=== PATIENT | male | born 1965 | race Caucasian/White ===

== ENCOUNTER 2017-06-16 17:36 | Emergency (ER) | payer OTHER ==
[2017-06-16 17:44] VITALS: BP 152/82; PULSE 96; TEMP 98.1; BMI 34.0
--- NOTE | 2017-06-16 17:50 | PDOC ---
History of Present Illness <Phil Lara - Last Filed: 06/16/17 17:49> - General History Source: Patient Exam Limitations: No Limitations - History of Present Illness Initial Comments: 06/16/17 18:07 The patient is a 52 year old male with a significant PMH of COPD, DM, HTN, HLD, s/p cardiac stents who presents to the emergency department s/p fall at 7AM this morning. The patient states he slipped and fell and broke his fall with his arms. The patient is complaining of right shoulder pain. The patient states his pain worsened at 2PM prompting his visit to the ER. The patient did not take any pain meds prior to his arrival. The patient denies chest pain, shortness of breath, headache and dizziness. Denies fever, chills, nausea, vomit, diarrhea and constipation. Allergies: NKA Past surgical history: cardiac stents Social history: No reported alcoholl or drug use. <Abida Johnson - Last Filed: 06/16/17 18:13> - General Chief Complaint: Injury Stated Complaint: SHOULDER INJURY Past History - Past Medical History COPD: Yes Dementia: Yes (TYPE II) Diabetes: Yes HTN: Yes Hypercholesterolemia: Yes - Surgical History Cardiac Surgery: Yes (stent in 2013) - Immunization History Immunization Up to Date: Yes - Suicide/Smoking/Psychosocial Hx Smoking Status: Yes Smoking History: Current every day smoker Have you smoked in the past 12 months: Yes Number of Cigarettes Smoked Daily: 20 Cigars Per Day: 0 Information on smoking cessation initiated: No 'Breaking Loose' booklet given: 06/20/16 Hx Alcohol Use: No Drug/Substance Use Hx: No Substance Use Type: None Hx Substance Use Treatment: No <Phil Lara - Last Filed: 06/16/17 17:49> <Abida Johnson - Last Filed: 06/16/17 18:13> - Past Medical History Allergies/Adverse Reactions: Allergies Allergy/AdvReac Type Severity Reaction Status Date / Time No Known Allergies Allergy Verified 06/16/17 17:40 Home Medications: Ambulatory Orders Metformin HCl 500 mg PO BID #60 tablet 10/30/11 Albuterol Sulfate Inhaler - [Ventolin Hfa *Inhaler*] 2 inh PO Q4H PRN 06/19/12 Clopidogrel Bisulfate [Plavix -] 75 mg PO DAILY 01/02/14 Enalapril Maleate [Vasotec -] 0 mg PO DAILY 01/02/14 Ibuprofen [Motrin -] 600 mg PO TID #21 tablet 01/02/14 Metoprolol Tartrate [Lopressor -] 0 mg PO DAILY 01/02/14 Simvastatin [Zocor -] 0 mg PO HS 01/02/14 Unobtainable [Unobtainable] 06/20/16 Review of Systems - Review of Systems Able to Perform ROS?: Yes Comments:: 06/16/17 18:08 GENERAL/CONSTITUTIONAL: No fever or chills. No weakness. HEAD, EYES, EARS, NOSE AND THROAT: No change in vision. No ear pain or discharge. No sore throat. CARDIOVASCULAR: No chest pain or shortness of breath. RESPIRATORY: No cough, wheezing, or hemoptysis. GASTROINTESTINAL: No nausea, vomiting, diarrhea or constipation. GENITOURINARY: No dysuria, frequency, or change in urination. MUSCULOSKELETAL: (+) Right shoulder pain. No neck or back pain. SKIN: No rash NEUROLOGIC: No headache, vertigo, loss of consciousness, or change in strength/ sensation. ENDOCRINE: No increased thirst. No abnormal weight change. HEMATOLOGIC/LYMPHATIC: No anemia, easy bleeding, or history of blood clots. ALLERGIC/IMMUNOLOGIC: No hives or skin allergy. <Abida Johnson - Last Filed: 06/16/17 18:13> *Physical Exam - Vital Signs Last Vital Signs Temp Pulse Resp BP Pulse Ox 98.1 F 96 H 18 152/82 98 06/16/17 17:42 06/16/17 17:42 06/16/17 17:42 06/16/17 17:42 06/16/17 17:42 <Phil Lara - Last Filed: 06/16/17 17:49> - Vital Signs Last Vital Signs Temp Pulse Resp BP Pulse Ox 98.1 F 96 H 18 152/82 98 06/16/17 17:42 06/16/17 17:42 06/16/17 17:42 06/16/17 17:42 06/16/17 17:42 - Physical Exam Comments: 06/16/17 18:09 The patient won't corporate with physical exam. GENERAL: Awake, alert, and fully oriented, in no acute distress HEAD: No signs of trauma EYES: PERRLA, EOMI, sclera anicteric, conjunctiva clear ENT: Auricles normal inspection, hearing grossly normal, nares patent, oropharynx clear without exudates. Moist mucosa NECK: Normal ROM, supple, no lymphadenopathy, JVD, or masses LUNGS: Breath sounds equal, clear to auscultation bilaterally. No wheezes, and no crackles HEART: Regular rate and rhythm, normal S1 and S2, no murmurs, rubs or gallops ABDOMEN: Soft, nontender, normoactive bowel sounds. No guarding, no rebound. No masses EXTREMITIES: (+) Good color to right shoulder. Distal pulses are 2+ and symmetric. Normal range of motion, no edema. No clubbing or cyanosis. No cords or erythema. NEUROLOGICAL: No sensory loss. Cranial nerves II through XII grossly intact. Normal speech, normal gait SKIN: Warm, Dry, normal turgor, no rashes or lesions noted. <Abida Johnson - Last Filed: 06/16/17 18:13> *DC/Admit/Observation/Transfer - Attestations Physician Attestion: 06/16/17 17:50 I, Dr. Phil Lara, attest that this document has been prepared under my direction and personally reviewed by me in its entirety. I further attest, that it accurately reflects all work, treatment, procedures and medical decision -making performed by me. <Phil Lara - Last Filed: 06/16/17 17:49> - Attestations Scribe Attestion: 06/16/17 18:13 Documentation prepared by Abida Johnson, acting as medical microbiologist for Emergency Dept,Physician, . <Abida Johnson - Last Filed: 06/16/17 18:13>
[2017-06-16] MEDS ORDERED: KETOROLAC TROMETHAMINE 60 MG/2 ML VIAL IM ONE (17:55)
[2017-06-16] MEDS ORDERED: KETOROLAC TROMETHAMINE 60 MG/2 ML VIAL ONE (18:19)
--- NOTE | 2017-06-16 20:24 | PDOC ---
*Physical Exam - Vital Signs Last Vital Signs Temp Pulse Resp BP Pulse Ox 98.1 F 96 H 18 152/82 98 06/16/17 17:42 06/16/17 17:42 06/16/17 17:42 06/16/17 17:42 06/16/17 17:42 ED Treatment Course - Medications Given in the ED: ED Medications Discontinued Medications Generic Name Dose Route Start Last Admin Trade Name Freq PRN Reason Stop Dose Admin Ketorolac Tromethamine 60 mg 06/16/17 17:55 06/16/17 18:27 Toradol Injection - IM 06/16/17 17:56 60 mg ONCE ONE Administration *DC/Admit/Observation/Transfer Diagnosis at time of Disposition: Shoulder contusion Qualifiers: Encounter type: initial encounter Laterality: right Qualified Code(s): S40.011A - Contusion of right shoulder, initial encounter Sprain of shoulder, right Qualifiers: Encounter type: initial encounter Shoulder sprain type: other part of shoulder region Qualified Code(s): S43.491A - Other sprain of right shoulder joint, initial encounter - Discharge Dispostion Disposition: HOME Condition at time of disposition: Stable Admit: No - Referrals Referrals: Heidy Chamberlain MD [Primary Care Provider] - Eliecer Short MD [Staff Physician] - - Patient Instructions Printed Discharge Instructions: DI for Shoulder Sprain Additional Instructions: Rest, ice and elevate arm when you can. Apply ice ot the injured area. TAke medication as directed. REturn if any problems - Post Discharge Activity
== END 2017-06-16 21:02 | disposition home or self-care (01) ==
LOC: JER 17:36
PROC: 3E0233Z Introduction of Anti-inflammatory into Muscle, Percutaneous Approach (ICD-10-PCS; principal; 2017-06-16)
DX: S43.491A Other sprain of right shoulder joint, initial encounter (principal); S40.011A Contusion of right shoulder, initial encounter; W18.39XA Other fall on same level, initial encounter; Y93.89 Activity, other specified; Y92.9 Unspecified place or not applicable
CPT/HCPCS: 73030-TC-RT; 99282-25

== ENCOUNTER 2017-08-24 15:47 | Emergency (ER) | payer OTHER ==
--- NOTE | 2017-08-24 16:01 | PDOC ---
Rapid Medical Evaluation Chief Complaint: Respiratory Medical Evaluation: Allergies Allergy/AdvReac Type Severity Reaction Status Date / Time No Known Allergies Allergy Verified 06/16/17 17:40 08/24/17 16:00 I have performed a brief in-person evaluation of this patient. The patient presents with a chief complaint of: Body aches w/ fever, cough and sob. Smoker w/ h/o CAD w/ stents, NH Pertinent physical exam findings:BP 161/94 w/ temp of 99 and clear chest/lungs I have ordered the following:ekg/cxr/labs The patient will proceed to the ED for further evaluation.
[2017-08-24 16:03] VITALS: BMI 34.7
[2017-08-24 16:29] LABS: BASO % 0.3 % (0-2.0); EOS % 0.4 % (0-4.5); HEMATOCRIT 48.8 % (35.4-49); HEMOGLOBIN 16.1 GM/dL (11.7-16.9); LYMPH % 11.5 % (8-40); MCH 29.3 pg (25.7-33.7); MEAN CELL VOLUME 88.8 fl (80-96); MEAN PLT VOLUME 9.8 fl (7.5-11.1); MONO % 5.8 % (3.8-10.2); PLATELET COUNT 170 K/MM3 (134-434); RDW 13.5 % (11.9-15.9); WHITE BLOOD COUNT 16.9 K/mm3 (4.0-10.0)
[2017-08-24 16:41] LABS: URINE APPEARANCE CLEAR; URINE BILIRUBIN NEGATIVE (NEGATIVE); URINE BLOOD NEGATIVE (NEGATIVE); URINE COLOR LTYELLOW; URINE GLUCOSE (UA) 3+ (NEGATIVE); URINE KETONE TRACE (NEGATIVE); URINE LEUK ESTERASE NEGATIVE (NEGATIVE); URINE NITRITE NEGATIVE (NEGATIVE); URINE PROTEIN NEGATIVE (NEGATIVE); URINE UROBILINOGEN NEGATIVE mg/dL (0.2-1.0)
[2017-08-24 16:49] LABS: ALBUMIN 3.9 g/dl (3.4-5.0); ANION GAP 9 (8-16); BILIRUBIN,TOTAL 0.8 mg/dL (0.2-1.0); BLOOD UREA NITROGEN 11 mg/dL (7-18); CALCIUM 8.1 mg/dL (8.5-10.1); CHLORIDE 100 mmol/L (98-107); CO2 28 mmol/L (21-32); CREATININE 1.1 mg/dL (0.7-1.3); GLUCOSE,RANDOM 223 mg/dL (74-106); POTASSIUM 3.8 mmol/L (3.5-5.1); SGOT/AST 15 U/L (15-37); SGPT/ALT 23 U/L (12-78); SODIUM 137 mmol/L (136-145); TOT PROT 7.6 g/dl (6.4-8.2)
[2017-08-24 16:52] LABS: ALK PHOS 82 U/L (45-117)
[2017-08-24 21:16] VITALS: BP 144/96; PULSE 105; TEMP 99.1
[2017-08-24] MEDS ORDERED: ACETAMINOPHEN 1000 MG/100 ML VIAL (NON FORMULARY) IVPB ONE (21:36)
[2017-08-24] MEDS ORDERED: ACETAMINOPHEN INJECTION 100 ML IVPB ONE (21:44)
[2017-08-24] MEDS ORDERED: ALBUTEROL SO4 2.5/IPRATROPIUM 0.5 INH SOL 3 ML VIAL.NEB. NEB ONE ×2 (22:03→22:11)
[2017-08-24] MEDS ORDERED: methylPREDNISolone NA SUCC 125 MG/2 ML VIAL IVPB ONE (22:03)
[2017-08-24] MEDS ORDERED: AZITHROMYCIN 500 MG TABLET PO ONE (22:04)
[2017-08-24] MEDS ORDERED: methylPREDNISolone NA SUCC 125 MG/2 ML VIAL ONE (22:11)
[2017-08-24] MEDS ORDERED: AZITHROMYCIN 500 MG TABLET ONE (22:11)
--- NOTE | 2017-08-24 22:17 | PDOC ---
History of Present Illness - General Chief Complaint: Respiratory Stated Complaint: FLU LIKE SYMPTOMS Time Seen by Provider: 08/24/17 16:03 - History of Present Illness Initial Comments: 08/24/17 22:32 "The patient is a 52 year old male, with a significant past medical history of CAD w/ stents, COPD, and diabetes, who presents to the emergency department with body aches, fever, and cough x 3 days. He reports that his fever is low grade at 99.9 degrees F. He notes that his cough is productive of a white phlegm. He denies any recent travel or sick contacts. He also reports one episode of diarrhea that has since resolved. The patient denies chest pain, shortness of breath, headache and dizziness. Denies chills, nausea, vomit, and constipation. Denies dysuria, frequency, urgency and hematuria. Allergies: None Past surgical history: Cardiac stents Social history: No alcohol, tobacco or drug use reported Past History - Past Medical History Allergies/Adverse Reactions: Allergies Allergy/AdvReac Type Severity Reaction Status Date / Time No Known Allergies Allergy Verified 06/16/17 17:40 Home Medications: Ambulatory Orders Glyburide [Diabeta -] 1.25 mg PO BID 06/16/17 Ibuprofen 800 mg PO TID #30 tablet 06/16/17 Metformin HCl [Metformin HCl ER] 500 mg PO BID 06/16/17 Methocarbamol [Robaxin -] 750 mg PO Q8H #30 tablet 06/16/17 Metoprolol Succinate [Toprol Xl -] 0 mg PO DAILY 06/16/17 Azithromycin 250 mg PO DAILY #4 tablet 08/24/17 Prednisone [Prednisone 50 MG TABLETS] 50 mg PO DAILY #4 tablet 08/24/17 Ticagrelor [Brilinta] 90 mg PO DAILY 08/24/17 Cardiac Disorders: Yes (mi) COPD: Yes Dementia: Yes (TYPE II) Diabetes: Yes HTN: Yes (didnt take meds today) Hypercholesterolemia: Yes - Surgical History Cardiac Surgery: Yes (stent in 2012) - Immunization History Immunization Up to Date: Yes - Suicide/Smoking/Psychosocial Hx Smoking Status: Yes Smoking History: Current some day smoker Have you smoked in the past 12 months: Yes Number of Cigarettes Smoked Daily: 5 Cigars Per Day: 0 Information on smoking cessation initiated: No 'Breaking Loose' booklet given: 06/20/16 Hx Alcohol Use: No Drug/Substance Use Hx: No Substance Use Type: None Hx Substance Use Treatment: No Review of Systems - Review of Systems Comments:: 08/24/17 22:09 " ""GENERAL/CONSTITUTIONAL: + fever no chills. No weakness. HEAD, EYES, EARS, NOSE AND THROAT: No change in vision. No ear pain or discharge. No sore throat. CARDIOVASCULAR: No chest pain or shortness of breath. RESPIRATORY: + cough, no wheezing, or hemoptysis. GASTROINTESTINAL: No nausea, vomiting, diarrhea or constipation. GENITOURINARY: No dysuria, frequency, or change in urination. MUSCULOSKELETAL: No joint or muscle swelling or pain. No neck or back pain. SKIN: No rash NEUROLOGIC: No headache, vertigo, loss of consciousness, or change in strength/ sensation. ENDOCRINE: No increased thirst. No abnormal weight change. HEMATOLOGIC/LYMPHATIC: No anemia, easy bleeding, or history of blood clots. ALLERGIC/IMMUNOLOGIC: No hives or skin allergy. """ *Physical Exam - Vital Signs Last Vital Signs Temp Pulse Resp BP Pulse Ox 99.1 F 105 H 18 144/96 95 08/24/17 21:12 08/24/17 21:12 08/24/17 21:12 08/24/17 21:12 08/24/17 21:12 - Physical Exam Comments: 08/24/17 22:08 """GENERAL: Awake, alert, and fully oriented, in no acute distress HEAD: No signs of trauma EYES: PERRLA, EOMI, sclera anicteric, conjunctiva clear ENT: Auricles normal inspection, hearing grossly normal, nares patent, oropharynx clear without exudates. Moist mucosa NECK: Nontender, no stepoffs, Normal ROM, supple, no lymphadenopathy, JVD, or masses LUNGS: Mild R sided expiratory wheezing, L lung field clear HEART: Regular rate and rhythm, normal S1 and S2, no murmurs, rubs or gallops ABDOMEN: Soft, nontender, normoactive bowel sounds. No guarding, no rebound. No masses EXTREMITIES: Normal range of motion, no edema. No clubbing or cyanosis. No cords, erythema, or tenderness NEUROLOGICAL: Cranial nerves II through XII intact. 5/5 strength and sensation in all extremities, Normal speech, normal gait, normal cerebellar function SKIN: Warm, Dry, normal turgor, no rashes or lesions noted. ED Treatment Course - LABORATORY CBC & Chemistry Diagram: 08/24/17 16:08 08/24/17 16:08 - ADDITIONAL ORDERS Additional order review: Laboratory Results 08/24/17 08/24/17 16:15 16:08 Sodium 137 Potassium 3.8 Chloride 100 Carbon Dioxide 28 Anion Gap 9 BUN 11 Creatinine 1.1 D Creat Clearance w eGFR > 60 Random Glucose 223 H Calcium 8.1 L Total Bilirubin 0.8 D AST 15 D ALT 23 D Alkaline Phosphatase 82 D Creatine Kinase 131 Troponin I 0.03 D Total Protein 7.6 Albumin 3.9 Urine Color Ltyellow Urine Appearance Clear Urine pH 6.0 Ur Specific [place] 1.010 Urine Protein Negative Urine Glucose (UA) 3+ H Urine Ketones Trace H Urine Blood Negative Urine Nitrite Negative Urine Bilirubin Negative Urine Urobilinogen Negative Ur Leukocyte Esterase Negative 08/24/17 16:08 RBC 5.50 MCV 88.8 MCHC 33.0 RDW 13.5 MPV 9.8 Neutrophils % 82.0 Lymphocytes % 11.5 D Monocytes % 5.8 Eosinophils % 0.4 Basophils % 0.3 - Medications Given in the ED: ED Medications Discontinued Medications Generic Name Dose Route Start Last Admin Trade Name Freq PRN Reason Stop Dose Admin Acetaminophen 1,000 mg 08/24/17 21:36 08/24/17 21:51 Ofirmev Injection - IVPB 08/24/17 21:37 1,000 mg ONCE ONE Administration Medical Decision Making - Medical Decision Making 08/24/17 22:08 52 M with bodyaches, fever, and cough. Likely URI vs PNA. Pt also found to have slight wheezing on exam, suggesting COPD exacerbation. - Labs - CXR - Nebs, steroids, Azithro 08/24/17 23:22 Labs notable for leukocytosis, WBC 16 Pt reassessed s/p nebs and steroids - now significantly improved. CXR without consolidation on my read. However, given clinical picture and symptoms, will empirically tx for PNA. Ceftriaxone and azithro given. Pt is well appearing, with normal vitals. Clinically stable for DC at this time. I discussed the physical exam findings, ancillary test results and final diagnoses with the patient. I answered all of the patient's questions. The patient was satisfied with the care received and felt comfortable with the discharge plan and treatment plan. The patient agrees to follow up with the primary care physician within 24-72 hours. *DC/Admit/Observation/Transfer Diagnosis at time of Disposition: COPD (chronic obstructive pulmonary disease), Pneumonia - Discharge Dispostion Disposition: HOME - Prescriptions Prescriptions: Azithromycin 250 mg PO DAILY #4 tablet Prednisone [Prednisone 50 MG TABLETS] 50 mg PO DAILY #4 tablet - Referrals Referrals: Heidy Chamberlain MD [Primary Care Provider] - - Patient Instructions Printed Discharge Instructions: DI for Chronic Obstructive Pulmonary Disease Additional Instructions: You likely have a viral infection. However, your symptoms are concerning for pneumonia as well. Take the antibiotics as prescribed to treat it. You are also having a COPD flare. Take the prednisone as prescribed for 4 more days. Use your albuterol nebulizer every 4 hours for coughing or wheezing. If you experience worsening fevers, shortness of breath, chest pain, or any other concerning symptoms, return to the ER immediately. Otherwise, follow up with your primary doctor within 48 hours. - Post Discharge Activity - Attestations Physician Attestion: 08/24/17 23:32 I, Dr. Judson Donaldson MD, attest that this document has been prepared under my direction and personally reviewed by me in its entirety. I further attest, that it accurately reflects all work, treatment, procedures and medical decision -making performed by me.
[2017-08-24] MEDS ORDERED: CEFTRIAXONE 1 GM in DEXTROSE 5%-WATER - 50 ML IVPB ONE (23:02)
[2017-08-24] MEDS ORDERED: CEFTRIAXONE 1 GM/50 ML BAG ONE (23:11)
--- NOTE | 2017-08-25 12:17 | EKG ---
Test Reason : Blood Pressure : / mmHG Vent. Rate : 107 BPM Atrial Rate : 107 BPM P-R Int : 142 ms QRS Dur : 088 ms QT Int : 346 ms P-R-T Axes : 068 090 047 degrees QTc Int : 461 ms SINUS TACHYCARDIA POSSIBLE LEFT ATRIAL ENLARGEMENT RIGHTWARD AXIS SEPTAL INFARCT (CITED ON OR BEFORE 20-JUN-2016) ABNORMAL ECG WHEN COMPARED WITH ECG OF 20-JUN-2016 12:50, ST ELEVATION NOW PRESENT IN ANTERIOR LEADS Confirmed by THALIA MONTAÑO MD ([id number]) on 08/25/2017 12:17:35 PM Referred By: Confirmed By:THALIA MONTAÑO MD
== END 2017-08-25 00:17 | disposition home or self-care (01) ==
LOC: JER 15:47 → JERFT 15:47 → JER 08-25 00:17
PROC: 3E0F7GC Introduction of Other Therapeutic Substance into Respiratory Tract, Via Natural or Artificial Opening (ICD-10-PCS; principal; 2017-08-24)
PROC: 3E03329 Introduction of Other Anti-infective into Peripheral Vein, Percutaneous Approach (ICD-10-PCS; 2017-08-24)
PROC: 3E033NZ Introduction of Analgesics, Hypnotics, Sedatives into Peripheral Vein, Percutaneous Approach (ICD-10-PCS; 2017-08-24)
PROC: 3E0333Z Introduction of Anti-inflammatory into Peripheral Vein, Percutaneous Approach (ICD-10-PCS; 2017-08-24)
DX: J18.9 Pneumonia, unspecified organism (principal); F17.210 Nicotine dependence, cigarettes, uncomplicated; J44.9 Chronic obstructive pulmonary disease, unspecified; I25.10 Atherosclerotic heart disease of native coronary artery without angina pectoris; I10 Essential (primary) hypertension; Z95.5 Presence of coronary angioplasty implant and graft; E11.9 Type 2 diabetes mellitus without complications; Z79.84 Long term (current) use of oral hypoglycemic drugs; I25.2 Old myocardial infarction
CPT/HCPCS: 36415; 71046-TC-FY; 80053; 81003; 82550; 84484; 85025; 93005; 93010; 99282-25

== ENCOUNTER 2017-10-31 18:15 | Emergency (ER) | payer OTHER ==
[2017-10-31 18:33] VITALS: BMI 34.5
[2017-10-31] MEDS ORDERED: predniSONE 20 MG TABLET (UD) PO ONE (20:07)
[2017-10-31] MEDS ORDERED: predniSONE 20 MG TABLET (UD) ONE (20:26)
[2017-10-31] MEDS ORDERED: ALBUTEROL SO4 2.5/IPRATROPIUM 0.5 INH SOL 3 ML VIAL.NEB. NEB ONE ×2 (20:26→20:34)
[2017-10-31] MEDS: ALBUTEROL SO4 2.5/IPRATROPIUM 0.5 INH SOL 3 ML VIAL.NEB. NEB SCH ×4 (20:33→21:14)
--- NOTE | 2017-10-31 20:45 | PDOC ---
History of Present Illness - General Chief Complaint: Cold Symptoms Stated Complaint: COUGH/dizziness - History of Present Illness Initial Comments: 10/31/17 20:42 "The patient is a 52 year old male, with a significant past medical history of hypertension, dyslipidemia, COPD, CAD w/ stents and diabetes, who presents to the emergency department with a productive cough for the past 5 days. The patient reports that he was around one of his friends who was experiencing similar symptoms last week. Shortly after, the patient began coughing up phlegm. The patient states that the cough is worse when lying down and at night. The patient reports that he saw his PCP last week for these symptoms, for which he was given a course of Azithromycin, which he states he completed. In the ED, he currently denies fever, chills, shortness of breath or chest pain. He reports using his albuterol pump with mild improvement. Pt denies leg swelling. Denies recent travel/immobilization. Allergies: None reported. Past Surgical History: Cardiac stents. Social History: Former smoker. Denies alcohol or drug use. PCP: Dr. Chamberlain " Past History - Past Medical History Allergies/Adverse Reactions: Allergies Allergy/AdvReac Type Severity Reaction Status Date / Time No Known Allergies Allergy Verified 06/16/17 17:40 Home Medications: Ambulatory Orders Metoprolol Succinate [Toprol Xl -] 0 mg PO DAILY 06/16/17 Prednisone [Prednisone 50 MG TABLETS] 50 mg PO DAILY #4 tablet 08/24/17 Ticagrelor [Brilinta] 90 mg PO DAILY 08/24/17 Glyburide/Metformin HCl [Glyburide-Metformin 2.5-500 mg] 1 each PO BID 10/31/17 Prednisone [Prednisone 50 MG TABLETS] 50 mg PO DAILY #4 tablet 10/31/17 Cardiac Disorders: Yes (mi 08/2017) COPD: Yes Dementia: Yes (TYPE II) Diabetes: Yes HTN: Yes (didnt take meds today) Hypercholesterolemia: Yes - Surgical History Cardiac Surgery: Yes (stent in 2012) - Immunization History Immunization Up to Date: Yes - Suicide/Smoking/Psychosocial Hx Smoking Status: Yes Smoking History: Former smoker Have you smoked in the past 12 months: Yes Number of Cigarettes Smoked Daily: 5 If you are a former smoker, when did you quit?: 08/2017 Cigars Per Day: 0 Information on smoking cessation initiated: No 'Breaking Loose' booklet given: 06/20/16 Hx Alcohol Use: No Drug/Substance Use Hx: No Substance Use Type: None Hx Substance Use Treatment: No Review of Systems - Review of Systems Comments:: 10/31/17 20:44 "GENERAL/CONSTITUTIONAL: No fever or chills. No weakness. HEAD, EYES, EARS, NOSE AND THROAT: No change in vision. No ear pain or discharge. No sore throat. CARDIOVASCULAR: No chest pain or shortness of breath. RESPIRATORY: +Cough, wheezing. No hemoptysis. GASTROINTESTINAL: No nausea, vomiting, diarrhea or constipation. GENITOURINARY: No dysuria, frequency, or change in urination. MUSCULOSKELETAL: No joint or muscle swelling or pain. No neck or back pain. SKIN: No rash. NEUROLOGIC: No headache, vertigo, loss of consciousness, or change in strength/ sensation. ENDOCRINE: No increased thirst. No abnormal weight change. HEMATOLOGIC/LYMPHATIC: No anemia, easy bleeding, or history of blood clots. ALLERGIC/IMMUNOLOGIC: No hives or skin allergy. " *Physical Exam - Vital Signs Last Vital Signs Temp Pulse Resp BP Pulse Ox 97.9 F 90 18 116/68 99 10/31/17 18:20 10/31/17 18:20 10/31/17 18:20 10/31/17 18:20 10/31/17 18:20 - Physical Exam Comments: 10/31/17 20:44 "GENERAL: Awake, alert, and fully oriented, in no acute distress. HEAD: No signs of trauma. EYES: PERRLA, EOMI, sclera anicteric, conjunctiva clear. ENT: Auricles normal inspection, hearing grossly normal, nares patent, oropharynx clear without exudates. Moist mucosa. NECK: Nontender, no stepoffs, Normal ROM, supple, no lymphadenopathy, JVD, or masses. LUNGS: Mild inspiratory and expiratory wheezes bilaterally. Breath sounds equal bilaterally. No crackles. HEART: Regular rate and rhythm, normal S1 and S2, no murmurs, rubs or gallops. ABDOMEN: Soft, nontender, normoactive bowel sounds. No guarding, no rebound. No masses. EXTREMITIES: Normal range of motion, no edema. No clubbing or cyanosis. No cords, erythema, or tenderness. NEUROLOGICAL: Cranial nerves II through XII intact. 5/5 strength and sensation in all extremities. Normal speech, normal gait, normal cerebellar function. SKIN: Warm, dry, normal turgor, no rashes or lesions noted. " Heart Score/ECG Review - ECG Impressions Comment:: 10/31/17 20:44 NSR ,no NARA/STDs, Q waves anteriorly present on prior EKG, TWI aVL, intervals wnl, rate 88 ED Treatment Course - LABORATORY CBC & Chemistry Diagram: 10/31/17 20:45 10/31/17 20:45 - RADIOLOGY Radiology Studies Ordered: Category Date Time Status CHEST PA & LAT [RAD] Stat Radiology 10/31/17 20:06 Ordered - Medications Given in the ED: ED Medications Discontinued Medications Generic Name Dose Route Start Last Admin Trade Name Marlonq PRN Reason Stop Dose Admin Prednisone 60 mg 10/31/17 20:07 10/31/17 20:33 Deltasone - PO 10/31/17 20:08 60 mg ONCE ONE Administration Medical Decision Making - Medical Decision Making 10/31/17 20:52 52 M with COPD presenting with cough x 5 days, found to be wheezing on exam. Likely COPD. Pt without chest pain/SOB but will r/o ACS with trop. EKG nonischemic. Will also r/o PNA with CXR. - Labs, trop - CXR - Nebs, steroids - Reassess 10/31/17 22:08 CXR clear on my read. Labs wnl other than elevated BNP. However, pt without any clinical signs of volume overload. No pulmonary edema on XR. 10/31/17 22:16 Pt reassessed - now feels much better s/p nebs and steroids. Lung exam at this time completely clear, no wheezing, no rales, no rhonchi. Pt ambulatory with normal O2 sat. Pt is well appearing, with normal vitals. Clinically stable for DC at this time. I discussed the physical exam findings, ancillary test results and final diagnoses with the patient. I answered all of the patient's questions. The patient was satisfied with the care received and felt comfortable with the discharge plan and treatment plan. The patient agrees to follow up with the primary care physician within 24-72 hours. *DC/Admit/Observation/Transfer Diagnosis at time of Disposition: COPD (chronic obstructive pulmonary disease) - Discharge Dispostion Disposition: HOME - Referrals Referrals: Heidy Chamberlain MD [Primary Care Provider] - - Patient Instructions Printed Discharge Instructions: DI for Chronic Obstructive Pulmonary Disease Additional Instructions: Take the steroids for 4 more days as prescribed. Use your albuterol inhaler every 4 hours as needed for coughing/wheezing. Follow up with your primary doctor within 1 week for a check up. If you experience worsening cough, shortness of breath, chest pain, or any other concerning symptoms, return to the ER immediately. - Post Discharge Activity - Attestations Physician Attestion: 10/31/17 22:19 I, Dr. Judson Donaldson MD, attest that this document has been prepared under my direction and personally reviewed by me in its entirety. I further attest, that it accurately reflects all work, treatment, procedures and medical decision -making performed by me.
[2017-10-31 21:02] LABS: EOS % 0.9 % (0-4.5); HEMATOCRIT 34.2 % (35.4-49); HEMOGLOBIN 12.2 GM/dL (11.7-16.9); LYMPH % 28.3 % (8-40); MCHC 35.6 g/dl (32.0-35.9); MEAN CELL VOLUME 89.8 fl (80-96); MEAN PLT VOLUME 8.3 fl (7.5-11.1); MONO % 9.4 % (3.8-10.2); NEUT % 60.4 % (42.8-82.8); PLATELET COUNT 242 K/MM3 (134-434); RBC 3.81 M/mm3 (4.00-5.60); RDW 15.7 % (11.9-15.9); WHITE BLOOD COUNT 11.9 K/mm3 (4.0-10.0)
[2017-10-31 21:25] LABS: ANION GAP 7 (8-16); BILIRUBIN,TOTAL 0.4 mg/dL (0.2-1.0); BLOOD UREA NITROGEN 29 mg/dL (7-18); CALCIUM 8.6 mg/dL (8.5-10.1); CHLORIDE 104 mmol/L (98-107); CO2 27 mmol/L (21-32); CREATININE 1.3 mg/dL (0.7-1.3); GLUCOSE,RANDOM 121 mg/dL (74-106); POTASSIUM 3.8 mmol/L (3.5-5.1); SGOT/AST 18 U/L (15-37); SGPT/ALT 26 U/L (12-78); SODIUM 138 mmol/L (136-145)
[2017-10-31 21:27] LABS: ALK PHOS 61 U/L (45-117); TOT PROT 7.9 g/dl (6.4-8.2)
[2017-10-31 21:29] LABS: N-TERMINAL BNP 1139.51 pg/ml (5-125)
[2017-10-31 22:27] VITALS: BP 110/78; PULSE 88; TEMP 98.5
--- NOTE | 2017-11-02 10:33 | EKG ---
Test Reason : Blood Pressure : / mmHG Vent. Rate : 088 BPM Atrial Rate : 088 BPM P-R Int : 154 ms QRS Dur : 082 ms QT Int : 380 ms P-R-T Axes : 054 084 067 degrees QTc Int : 459 ms NORMAL SINUS RHYTHM ANTEROSEPTAL INFARCT (CITED ON OR BEFORE 20-JUN-2016) ABNORMAL ECG WHEN COMPARED WITH ECG OF 24-AUG-2017 22:13, ST NO LONGER ELEVATED IN ANTERIOR LEADS Confirmed by CHAUNCEY HARDY MD ([id number]) on 11/02/2017 10:33:04 AM Referred By: Confirmed By:CHAUNCEY HARDY MD
== END 2017-10-31 22:27 | disposition home or self-care (01) ==
LOC: JER 18:15
PROC: 3E0F7GC Introduction of Other Therapeutic Substance into Respiratory Tract, Via Natural or Artificial Opening (ICD-10-PCS; principal; 2017-10-31)
PROC: 3E0F7GC Introduction of Other Therapeutic Substance into Respiratory Tract, Via Natural or Artificial Opening (ICD-10-PCS; 2017-10-31)
PROC: 3E0F7GC Introduction of Other Therapeutic Substance into Respiratory Tract, Via Natural or Artificial Opening (ICD-10-PCS; 2017-10-31)
PROC: 3E0F7GC Introduction of Other Therapeutic Substance into Respiratory Tract, Via Natural or Artificial Opening (ICD-10-PCS; 2017-10-31)
DX: J44.9 Chronic obstructive pulmonary disease, unspecified (principal); I25.10 Atherosclerotic heart disease of native coronary artery without angina pectoris; I10 Essential (primary) hypertension; Z95.5 Presence of coronary angioplasty implant and graft; Z87.891 Personal history of nicotine dependence; E11.9 Type 2 diabetes mellitus without complications; Z79.84 Long term (current) use of oral hypoglycemic drugs; E78.5 Hyperlipidemia, unspecified
CPT/HCPCS: 36415; 71046-TC-FY; 80053; 82550; 83880; 84484; 85025; 93005; 93010; 94640; 99283-25; J7620

== ENCOUNTER 2017-11-04 09:00 | Emergency (ER) | payer OTHER ==
[2017-11-04 09:16] VITALS: BP 114/74; PULSE 88; TEMP 98; BMI 34.5
--- NOTE | 2017-11-04 09:30 | PDOC ---
History of Present Illness - General Chief Complaint: Injury Stated Complaint: RT SHOULDER PAIN Time Seen by Provider: 11/04/17 09:29 History Source: Patient Exam Limitations: No Limitations Past History - Travel Traveled outside of the country in the last 30 days: No Close contact w/someone who was outside of country & ill: No - Past Medical History Allergies/Adverse Reactions: Allergies Allergy/AdvReac Type Severity Reaction Status Date / Time No Known Allergies Allergy Verified 11/04/17 09:13 Home Medications: Ambulatory Orders Metoprolol Succinate [Toprol Xl -] 0 mg PO DAILY 06/16/17 Prednisone [Prednisone 50 MG TABLETS] 50 mg PO DAILY #4 tablet 08/24/17 Ticagrelor [Brilinta] 90 mg PO DAILY 08/24/17 Glyburide/Metformin HCl [Glyburide-Metformin 2.5-500 mg] 1 each PO BID 10/31/17 Prednisone [Prednisone 50 MG TABLETS] 50 mg PO DAILY #4 tablet 10/31/17 Oxycodone HCl/Acetaminophen [Percocet 5-325 mg Tablet] 1 tab PO Q6H PRN #10 tablet MDD 4 11/04/17 Cardiac Disorders: Yes (mi 08/2017) COPD: Yes Dementia: Yes (TYPE II) Diabetes: Yes HTN: Yes (didnt take meds today) Hypercholesterolemia: Yes - Surgical History Cardiac Surgery: Yes (stent in 2012) - Immunization History Immunization Up to Date: Yes - Suicide/Smoking/Psychosocial Hx Smoking Status: Yes Smoking History: Former smoker Have you smoked in the past 12 months: Yes Number of Cigarettes Smoked Daily: 5 If you are a former smoker, when did you quit?: september 14 2017 Cigars Per Day: 0 Information on smoking cessation initiated: No 'Breaking Loose' booklet given: 06/20/16 Hx Alcohol Use: No Drug/Substance Use Hx: No Substance Use Type: None Hx Substance Use Treatment: No Review of Systems - Review of Systems Able to Perform ROS?: Yes Comments:: 11/04/17 09:30 CONSTITUTIONAL: Absent: fever, chills, diaphoresis, generalized weakness, malaise, loss of appetite HEENT: Absent: rhinorrhea, nasal congestion, throat pain, throat swelling, difficulty swallowing, mouth swelling, ear pain, eye pain, visual Changes CARDIOVASCULAR: Absent: chest pain, loss of consciousness, palpitations, irregular heart rate, peripheral edema RESPIRATORY: Absent: cough, shortness of breath, dyspnea with exertion, orthopnea, wheezing, stridor, hemoptysis GASTROINTESTINAL: Absent: abdominal pain, abdominal distension, nausea, vomiting, diarrhea, constipation, melena, hematochezia GENITOURINARY: Absent: dysuria, frequency, urgency, hesitancy, hematuria, flank pain, genital pain MUSCULOSKELETAL: Present: R shoulder pain Absent: myalgia, joint swelling SKIN: Absent: rash, itching, pallor HEMATOLOGIC/IMMUNOLOGIC: Absent: easy bleeding, easy bruising, lymphadenopathy, frequent infections ENDOCRINE: Absent: unexplained weight gain, unexplained weight loss, heat intolerance, cold intolerance NEUROLOGIC: Absent: headache, focal weakness or paresthesias, dizziness, unsteady gait, seizure, mental status changes, bladder or bowel incontinence PSYCHIATRIC: Absent: anxiety, depression, suicidal or homicidal ideation, hallucinations. Is the patient limited Urdu proficient: No *Physical Exam - Vital Signs Last Vital Signs Temp Pulse Resp BP Pulse Ox 98.0 F 88 18 114/74 97 11/04/17 09:13 11/04/17 09:13 11/04/17 09:13 11/04/17 09:13 11/04/17 09:13 - Physical Exam Comments: 11/04/17 09:30 GENERAL: Well developed, well nourished. Awake and alert. No acute distress. Supple. Full ROM. No JVD. Carotid pulses 2+ and symmetric, without bruits. No thyromegaly. No lymphadenopathy. MUSCULOSKELETAL Normal range of motion at all joints. No bony deformities or tenderness. No CVA tenderness. EXTREMITIES: No cyanosis. No clubbing. No edema. No calf tenderness. SKIN: Warm and dry. Normal capillary refill. No rashes. No jaundice. NEUROLOGICAL: Alert, awake, appropriate. Cranial nerves 2-12 intact. No deficits to light touch and temperature in face, upper extremities and lower extremities. No motor deficits in the in face, upper extremities and lower extremities. Normoreflexic in the upper and lower extremities. Normal speech. Toes are down- going bilaterally. Gait is normal without ataxia. PSYCHIATRIC: Cooperative. Good eye contact. Appropriate mood and affect. *DC/Admit/Observation/Transfer Diagnosis at time of Disposition: Shoulder pain, right Qualifiers: Chronicity: unspecified Qualified Code(s): M25.511 - Pain in right shoulder - Discharge Dispostion Disposition: HOME Condition at time of disposition: Stable Admit: No - Referrals Referrals: Heidy Chamberlain MD [Primary Care Provider] - Eliecer Short MD [Staff Physician] - Bar Donaldson MD [Staff Physician] - - Patient Instructions Printed Discharge Instructions: DI for Shoulder Pain Additional Instructions: You have shoulder pain. You need to follow-up with orthopedics within the next week for further evaluation. Please take Tylenol 650 mg every 6 hours as needed for pain. You may take Percocet as needed for breakthrough pain. you may take this every 6 hours as well. If you take a percocet, skip the next dose of tylenol. Please do gentle stretching exercises and walk your arm up the wall to keep your mobility. Return to the emergency department if you have worsening pain, numbness and tingling down your fingers, weakness of the arm, or have any changes in her symptoms. - Post Discharge Activity Forms/Work/School Notes: Back to Work
[2017-11-04] MEDS ORDERED: KETOROLAC TROMETHAMINE 60 MG/2 ML VIAL IM ONE ×2 (09:48→10:03)
[2017-11-04] MEDS ORDERED: KETOROLAC TROMETHAMINE 60 MG/2 ML VIAL ONE (10:02)
== END 2017-11-04 10:19 | disposition home or self-care (01) ==
LOC: JERFT 09:00
PROC: 3E0233Z Introduction of Anti-inflammatory into Muscle, Percutaneous Approach (ICD-10-PCS; principal; 2017-11-04)
DX: M25.511 Pain in right shoulder (principal); E11.9 Type 2 diabetes mellitus without complications; I10 Essential (primary) hypertension; E78.00 Pure hypercholesterolemia, unspecified; I25.2 Old myocardial infarction
CPT/HCPCS: 96372; 99281-25

== ENCOUNTER 2018-04-27 11:45 | Emergency (ER) | payer OTHER ==
[2018-04-27] MEDS ORDERED: SODIUM CHLORIDE 0.9% 1000 ML INFUS.BAG IV ONE ×2 (11:57→14:01)
[2018-04-27] MEDS ORDERED: ONDANSETRON 4 MG/2 ML VIAL IVPUSH ONE (11:57)
[2018-04-27] MEDS ORDERED: ONDANSETRON 4 MG/2 ML VIAL ONE (12:13)
--- NOTE | 2018-04-27 12:29 | PDOC ---
History of Present Illness - General History Source: Patient Exam Limitations: No Limitations - History of Present Illness Initial Comments: 04/27/18 13:01 CC: Diarrhea HPI: The patient is a 53 year old male, with a significant past medical history of DM , COPD, HTN, CAD, and UT (x3 most recent July 2017 s/p stenting in July), who presents to the emergency department with, 3 days of diarrhea. Patient describes his diarrhea as nonbloody and watery with associated epigastric pain. Patient notes 6 episode of diarrhea today, prompting his visit to the ER. He denies any recent travel, abnormal food intake, or recent antibiotic usage. He denies any recent fevers, chills, headache or dizziness. He denies any recent nausea or vomit. He denies any recent chest pain or shortness of breath. He denies any recent dysuria, frequency, urgency or hematuria. Allergies: NKDA Past surgical history: S/p cardiac stenting. Primary Care Physician: Dr. Werner <Staci Christensen - Last Filed: 04/27/18 13:14> <Jeff Richey - Last Filed: 04/27/18 14:17> - General Chief Complaint: Nausea/Vomiting Stated Complaint: Vomiting/Diarrhea Time Seen by Provider: 04/27/18 11:59 Past History <Staci Christensen - Last Filed: 04/27/18 13:14> - Past Medical History Anemia: No Cardiac Disorders: Yes (mi 08/2017) COPD: Yes Dementia: Yes (TYPE II) Diabetes: Yes HTN: Yes (didnt take meds today) Hypercholesterolemia: Yes - Surgical History Cardiac Surgery: Yes (stent in 2012) - Immunization History Immunization Up to Date: Yes - Suicide/Smoking/Psychosocial Hx Smoking Status: Yes Smoking History: Former smoker Have you smoked in the past 12 months: Yes Number of Cigarettes Smoked Daily: 5 If you are a former smoker, when did you quit?: september 14 2017 Cigars Per Day: 0 Information on smoking cessation initiated: No 'Breaking Loose' booklet given: 06/20/16 Hx Alcohol Use: No Drug/Substance Use Hx: No Substance Use Type: None Hx Substance Use Treatment: No <Jeff Richey - Last Filed: 04/27/18 14:17> - Past Medical History Allergies/Adverse Reactions: Allergies Allergy/AdvReac Type Severity Reaction Status Date / Time No Known Allergies Allergy Verified 03/11/18 05:35 Home Medications: Ambulatory Orders Aspirin Coated [Ecotrin -] 81 mg PO DAILY 03/11/18 Atorvastatin Ca [Lipitor] 80 mg PO HS 03/11/18 Carvedilol [Coreg -] 12.5 mg PO BID 03/11/18 Clopidogrel Bisulfate [Plavix] 75 mg PO DAILY 03/11/18 Furosemide [Lasix] 40 mg PO DAILY 03/11/18 Glyburide/Metformin HCl [Glyburide-Metformin 5-500 mg] 1 each PO DAILY 03/11/18 Insulin (Levemir) [Levemir Vial] 12 units SQ HS 03/11/18 Lisinopril [Prinivil] 20 mg PO DAILY 03/11/18 Sitagliptin Phosphate [Januvia] 100 mg PO 03/11/18 Fenofibric Acid [Trilipix -] 135 mg PO DAILY #30 cap 03/13/18 Review of Systems - Review of Systems Able to Perform ROS?: Yes Comments:: 04/27/18 13:01 ROS: A complete review of 10 out of 10 review of systems is taken and is negative apart from what is previously mentioned below and in the HPI. <Staci Christensen - Last Filed: 04/27/18 13:14> *Physical Exam - Vital Signs Last Vital Signs Temp Pulse Resp BP Pulse Ox 98.0 F 107 H 18 134/89 96 04/27/18 12:32 04/27/18 12:32 04/27/18 12:32 04/27/18 12:32 04/27/18 12:32 - Physical Exam Comments: 04/27/18 13:14 Exam: Vitals: Triage Vital signs reviewed General Appearance: no acute distress, well nourished well developed, Head: Atraumatic, normocephalic Nose: No nasal congestion Neck: Supple;No Nuchal rigidity Chest Wall: Nontender Cardiac: Regular rate and rhythm, no murmurs, no rubs, no gallops, Lungs: Clear to auscultation bilateral, good air movement bilaterally, Abdomen: Soft, nondistended, normal bowel sounds, nontender to palpation Rectal: Exam deferred Extremities: Full range of motion to all extremities, no cyanosis, clubbing, or edema Skin: Warm and dry, no rashes or lesions, no petechiae Neuro: AOX3; Cranial Nerves 2-12 grossly intact, Strength intact to all extremities, Sensation intact to all extremities Psych: normal mood, normal affect <Staci Christensen - Last Filed: 04/27/18 13:14> ED Treatment Course - LABORATORY CBC & Chemistry Diagram: 04/27/18 12:25 04/27/18 12:25 - Medications Given in the ED: ED Medications Discontinued Medications Generic Name Dose Route Start Last Admin Trade Name Freq PRN Reason Stop Dose Admin Ondansetron HCl 4 mg 04/27/18 11:57 04/27/18 12:25 Zofran Injection IVPUSH 04/27/18 11:58 4 mg ONCE ONE Administration Sodium Chloride 1,000 ml 04/27/18 11:57 04/27/18 12:25 Normal Saline - IV 04/27/18 11:58 1,000 ml ONCE ONE Administration <Staci Christensen - Last Filed: 04/27/18 13:14> - LABORATORY CBC & Chemistry Diagram: 04/27/18 12:25 04/27/18 12:25 - RADIOLOGY Radiology Studies Ordered: Category Date Time Status CXRPORT [CHEST X-RAY PORTABLE*] [RAD] Stat Radiology 04/27/18 11:57 Ordered - Medications Given in the ED: ED Medications Discontinued Medications Generic Name Dose Route Start Last Admin Trade Name Freq PRN Reason Stop Dose Admin Ondansetron HCl 4 mg 04/27/18 11:57 04/27/18 12:25 Zofran Injection IVPUSH 04/27/18 11:58 4 mg ONCE ONE Administration Sodium Chloride 1,000 ml 04/27/18 11:57 04/27/18 12:25 Normal Saline - IV 04/27/18 11:58 1,000 ml ONCE ONE Administration <Jeff Richey - Last Filed: 04/27/18 14:17> Medical Decision Making - Medical Decision Making 04/27/18 13:01 53 year old male with history of DM, COPD, HTN, CAD, and UT (x3 most recent July 2017 s/p stenting in July) presents to the ED with diarrhea. Plan: <Staci Christensen - Last Filed: 04/27/18 13:14> - Medical Decision Making 04/27/18 14:16 Diarrhea has been persistent concent for 3 days. Patient has no red flags on history no fever no chills no recent antibiotics or hospitalizations no travel no blood in stool Is well-appearing in no apparent distress Stool cultures have been sent. We will follow them up Patient's creatinine noted to be 1.5 his baseline is 1.3 he was given 2 L of fluid instructed to follow up with his doctor in 2-3 days to have his labs rechecked Findings, the need for follow-up and strict return instructions discussed with patient. <Jeff Richey - Last Filed: 04/27/18 14:17> *DC/Admit/Observation/Transfer - Attestations Scribe Attestion: 04/27/18 13:03 Documentation prepared by Staci Christensen, acting as medical director for Jeff Richey MD. <Staci Christensen - Last Filed: 04/27/18 13:14> - Discharge Dispostion Decision to Admit order: No <Jeff Richey - Last Filed: 04/27/18 14:17> Diagnosis at time of Disposition: Diarrhea Qualifiers: Diarrhea type: unspecified type Qualified Code(s): R19.7 - Diarrhea, unspecified - Discharge Dispostion Disposition: HOME Condition at time of disposition: Good - Referrals Referrals: Heidy Chamberlain MD [Primary Care Provider] - - Patient Instructions Printed Discharge Instructions: DI for Diarrhea and Traveler's Diarrhea -- Adult Additional Instructions: Drink plenty of fluids. Avoid food and beverages which are high in sugar. Take an [id number] probiotic as directed on package. Follow-up with your doctor in 2-3 days to have your blood work rechecked. Return to the emergency department for any fever or blood in his stool severe abdominal pain or for any concerns. - Post Discharge Activity
[2018-04-27 12:34] VITALS: BP 134/89; PULSE 107; TEMP 98; BMI 37.9
[2018-04-27 12:59] LABS: BASO % 0.6 % (0-2.0); EOS % 1.6 % (0-4.5); HEMATOCRIT 41.9 % (35.4-49); HEMOGLOBIN 14.3 GM/dL (11.7-16.9); LYMPH % 20.4 % (8-40); MCH 31.1 pg (25.7-33.7); MCHC 34.1 g/dl (32.0-35.9); MEAN CELL VOLUME 91.1 fl (80-96); MEAN PLT VOLUME 9.2 fl (7.5-11.1); MONO % 6.5 % (3.8-10.2); NEUT % 70.9 % (42.8-82.8); PLATELET COUNT 215 K/MM3 (134-434); RDW 13.5 % (11.9-15.9)
[2018-04-27 13:24] LABS: ALBUMIN 4.5 g/dl (3.4-5.0); ALK PHOS 56 U/L (45-117); ANION GAP 9 MMOL/L (8-16); BILIRUBIN,TOTAL 0.4 mg/dL (0.2-1); BLOOD UREA NITROGEN 22 mg/dL (7-18); CALCIUM 8.7 mg/dL (8.5-10.1); CHLORIDE 108 mmol/L (98-107); CO2 22 mmol/L (21-32); CREATININE 1.5 mg/dL (0.55-1.3); GLUCOSE,RANDOM 217 mg/dL (74-106); LIPASE 192 U/L (73-393); POTASSIUM 4.3 mmol/L (3.5-5.1); SGOT/AST 36 U/L (15-37); SGPT/ALT 48 U/L (13-61); SODIUM 139 mmol/L (136-145); TOT PROT 8.6 g/dl (6.4-8.2)
--- NOTE | 2018-04-27 16:59 | EKG ---
Test Reason : Blood Pressure : / mmHG Vent. 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
== END 2018-04-27 14:56 | disposition home or self-care (01) ==
LOC: JER 11:45
DX: R19.7 Diarrhea, unspecified (principal); I25.10 Atherosclerotic heart disease of native coronary artery without angina pectoris; I10 Essential (primary) hypertension; Z95.5 Presence of coronary angioplasty implant and graft; I25.2 Old myocardial infarction; E11.9 Type 2 diabetes mellitus without complications; Z79.4 Long term (current) use of insulin; Z87.891 Personal history of nicotine dependence
CPT/HCPCS: 36415; 80053; 83690; 84484; 85025; 87045; 87046; 87324; 87449; 93005; 93010; 99283-25; J7030

== ENCOUNTER 2018-08-04 23:08 | Emergency (ER) | payer OTHER ==
[2018-08-04 23:16] VITALS: BP 115/70; PULSE 86; TEMP 97.8; BMI 39.1
--- NOTE | 2018-08-05 00:14 | PDOC ---
History of Present Illness <Kwabena Butts - Last Filed: 08/05/18 00:33> - General History Source: Patient Exam Limitations: No Limitations - History of Present Illness Initial Comments: 08/05/18 00:24 The patient is a 53 year old male with a PMH of DM, HTN, HLD, and 3 MIs presents to the ER complaining of perianal dry skin and pruritis. The patient states that he came home today and noticed the dry areas were itchy. Patient subsequently began to scratch the areas and noticed small amounts of bright red blood. Allergies: NKDA Surgical Hx: None reported Social Hx: Former smoker PCP: Dr. Griffin <Abida Johnson - Last Filed: 08/05/18 00:44> - General Chief Complaint: Rectal Bleed Stated Complaint: BLEEDING Time Seen by Provider: 08/05/18 00:14 Past History - Past Medical History Anemia: No Cardiac Disorders: Yes (mi 08/2017) COPD: Yes Dementia: Yes (TYPE II) Diabetes: Yes HTN: Yes (didnt take meds today) Hypercholesterolemia: Yes - Surgical History Cardiac Surgery: Yes (stent in 2012) - Immunization History Immunization Up to Date: Yes - Suicide/Smoking/Psychosocial Hx Smoking Status: Yes Smoking History: Former smoker Have you smoked in the past 12 months: No Number of Cigarettes Smoked Daily: 5 If you are a former smoker, when did you quit?: 09/15/17 Cigars Per Day: 0 Information on smoking cessation initiated: Yes 'Breaking Loose' booklet given: 06/20/16 Hx Alcohol Use: No Drug/Substance Use Hx: No Substance Use Type: None Hx Substance Use Treatment: No <Kwabena Butts - Last Filed: 08/05/18 00:33> <Abida Johnson - Last Filed: 08/05/18 00:44> - Past Medical History Allergies/Adverse Reactions: Allergies Allergy/AdvReac Type Severity Reaction Status Date / Time No Known Allergies Allergy Verified 08/05/18 00:40 Home Medications: Ambulatory Orders Aspirin Coated [Ecotrin -] 81 mg PO DAILY 03/11/18 Atorvastatin Ca [Lipitor] 80 mg PO HS 03/11/18 Carvedilol [Coreg -] 12.5 mg PO BID 03/11/18 Clopidogrel Bisulfate [Plavix] 75 mg PO DAILY 03/11/18 Furosemide [Lasix] 40 mg PO DAILY 03/11/18 Glyburide/Metformin HCl [Glyburide-Metformin 5-500 mg] 1 each PO DAILY 03/11/18 Insulin (Levemir) [Levemir Vial] 12 units SQ HS 03/11/18 Lisinopril [Prinivil] 20 mg PO DAILY 03/11/18 Sitagliptin Phosphate [Januvia] 100 mg PO 03/11/18 Fenofibric Acid [Trilipix -] 135 mg PO DAILY #30 cap 03/13/18 metroNIDAZOLE [Flagyl -] 500 mg PO TID #30 tablet 04/28/18 Nystatin Ointment [Mycostatin Ointment -] 1 applic TP BID #1 tube 08/05/18 Review of Systems - Review of Systems Able to Perform ROS?: Yes Comments:: 08/05/18 00:29 CONSTITUTIONAL: No fever, no chills, no fatigue EYES: No visual changes ENT: No ear pain, no sore throat CARDIOVASCULAR: No chest pain, no palpitations RESPIRATORY: No cough, no SOB GI: No abdominal pain, no nausea, no vomiting, no constipation, no diarrhea GENITOURINARY: No dysuria, no frequency, no hematuria (+) perianal dry skin and pruritis. MUSKULOSKELETAL: No backpain, no joint pain, no myalgias SKIN: No rash NEURO: No headache <Abida Johnson - Last Filed: 08/05/18 00:44> *Physical Exam - Vital Signs Last Vital Signs Temp Pulse Resp BP Pulse Ox 97.8 F 86 20 115/70 96 08/04/18 23:10 08/04/18 23:10 08/04/18 23:10 08/04/18 23:10 08/04/18 23:10 - Physical Exam Comments: 08/05/18 00:33 EXAMINATION CONSTITUTIONAL: awake, alert, obese, in no apparent distress HEAD: Normocephalic; atraumatic EYES: PERRL; EOM intact; conj-pink ENMT: External appears normal; normal oropharynx NECK: Supple; non-tender; no cervical lymphadenopathy CARD: Normal S1, S2; no murmurs, rubs, or gallops RESP: Normal chest excursion with respiration; breath sounds clear and equal bilaterally; no wheezes, rhonchi, or rales ABD: Soft, non-distended; non-tender; no palpable organomegaly, no palpable hernias MT: + several small non-thrombosed ext hemmorhoids; + 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 EXT: Normal ROM in all four extremities; +2 pitting edema b/l; distal pulses intact SKIN: Warm, dry, no rash NEURO: No focal neurological deficiencies. <Kwabena Butts - Last Filed: 08/05/18 00:33> - Vital Signs Last Vital Signs Temp Pulse Resp BP Pulse Ox 97.8 F 86 20 115/70 96 08/04/18 23:10 08/04/18 23:10 08/04/18 23:10 08/04/18 23:10 08/04/18 23:10 <Abida Johnson - Last Filed: 08/05/18 00:44> Moderate Sedation - Procedure Monitoring Vital Signs: Procedure Monitoring Vital Signs Temperature 97.8 F 08/04/18 23:10 Pulse Rate 86 08/04/18 23:10 Respiratory Rate 20 08/04/18 23:10 Blood Pressure 115/70 08/04/18 23:10 O2 Sat by Pulse Oximetry (%) 96 08/04/18 23:10 <Kwabena Butts - Last Filed: 08/05/18 00:33> - Procedure Monitoring Vital Signs: Procedure Monitoring Vital Signs Temperature 97.8 F 08/04/18 23:10 Pulse Rate 86 08/04/18 23:10 Respiratory Rate 20 08/04/18 23:10 Blood Pressure 115/70 08/04/18 23:10 O2 Sat by Pulse Oximetry (%) 96 08/04/18 23:10 <Abida Johnson - Last Filed: 08/05/18 00:44> Medical Decision Making - Medical Decision Making 08/05/18 00:36 Patient is a 53-year-old male with history of multiple comorbidities who presents with perianal pruritus associated with an ulcerating rash and several areas of minimal bleeding. No active bleeding from the rectum is identified. There is no evidence of enterocutaneous fistulas. No acute issues are present currently. Will discharge with Desitin on ointment and nystatin ointment topically with outpatient follow-up. <Benjamín,Kwabena - Last Filed: 08/05/18 00:33> *DC/Admit/Observation/Transfer <Kwabena Butts - Last Filed: 08/05/18 00:33> - Attestations Scribe Attestion: 08/05/18 00:30 Documentation prepared by Abida Johnson, acting as diploma medical assistant for Kwabena Butts MD. <Abida Johnson - Last Filed: 08/05/18 00:44> Diagnosis at time of Disposition: Perianal rash - Discharge Dispostion Disposition: HOME - Prescriptions Prescriptions: Nystatin Ointment [Mycostatin Ointment -] 1 applic TP BID #1 tube - Referrals Referrals: Heidy Chamberlain MD [Primary Care Provider] - John Mack MD [Staff Physician] - - Patient Instructions Printed Discharge Instructions: DI for Anal Itching (Pruritus Ani) Additional Instructions: Apply Desitin and nystatin ointment to the affected area twice daily. Follow-up with GI. Return immediately for worsening bleeding. - Post Discharge Activity
== END 2018-08-05 00:47 | disposition home or self-care (01) ==
LOC: JER 23:08
DX: R21 Rash and other nonspecific skin eruption (principal); I25.2 Old myocardial infarction; Z87.891 Personal history of nicotine dependence
CPT/HCPCS: 99282-25

== ENCOUNTER 2019-04-21 12:53 | Emergency (ER) | payer OTHER ==
[2019-04-21 13:09] VITALS: BP 147/75; PULSE 100; TEMP 97.5; BMI 38.7
--- NOTE | 2019-04-21 13:35 | PDOC ---
History of Present Illness - General Chief Complaint: Cold Symptoms Stated Complaint: FLU LIKE SYMPTOMS Time Seen by Provider: 04/21/19 13:31 - History of Present Illness Initial Comments: 04/21/19 13:35 CHIEF COMPLAINT: cough HISTORY OF PRESENT ILLNESS: 54-year-old male with hx of DM, HTN, HLD, COPD, and 3 MIs presents to [facility] with coughing x2 days. Patient reports generalized fatigue and body aches. Reports chills but is unsure if he has had a fever. Denies any nausea, vomiting, diarrhea. No recent travel or sick contacts. PAST MEDICAL HISTORY: DM, HTN, HLD, COPD FAMILY HISTORY: Denies SOCIAL HISTORY: Former smoker. Denies alcohol, illicit drug use. SURGICAL HISTORY: Denies ALLERGIES: No known drug allergies REVIEW OF SYSTEMS General/Constitutional: Denies fever or chills. Denies weakness, weight change. HEENT: Denies change in vision. Denies ear pain or discharge. Denies sore throat. Cardiovascular: Denies chest pain or shortness of breath. Respiratory: Coughing x 2 days. Gastrointestinal: Denies nausea, vomiting, diarrhea or constipation. Denies rectal bleeding. Genitourinary: Denies dysuria, frequency, or change in urination. Musculoskeletal: Denies joint or muscle swelling or pain. Denies neck or back pain. Skin and breasts: Denies rash or easy bruising. Neurologic: Denies headache, vertigo, loss of consciousness, or loss of sensation. Psychiatric: Denies depression or anxiety. Endocrine: Denies increased thirst. Denies abnormal weight change. Hematologic/Lymphatic: Denies anemia, easy bleeding, or history of blood clots. Allergic/Immunologic: Denies hives or skin allergy. Denies latex allergy. PHYSICAL EXAM General Appearance: Well-appearing, appropriately dressed. No apparent distress , no intoxication. HEENT: EOMI, PERRLA, normal ENT inspection, normal voice, TMs normal, pharynx normal. No conjunctival pallor. No photophobia, scleral icterus. Neck: Supple. Trachea midline. No tenderness, rigidity, carotid bruit, stridor , lymphadenopathy, or thyromegaly. Respiratory/Chest: Poor air entry to b/l upper lobes. No shortness of breath, chest tenderness, respiratory distress, accessory muscle use. No crackles, rales , rhonchi, stridor, wheezing, dullness Cardiovascular: RRR. S1, S2. No JVD, murmur, bradycardia, tachycardia. Vascular Pulses: Dorsalis-Pedis (R): 2+, Dorsalis-Pedis (L): 2+ Gastrointestinal/Abdominal: Normal bowel sounds. Abdomen soft, non-distended. No tenderness or rebound tenderness. No organomegaly, pulsatile mass, guarding , hernia, hepatomegaly, splenomegaly. Lymphatic: No adenopathy, tenderness. Musculoskeletal/Extremities: Normal inspection. FROM of all extremities, normal capillary refill. Pelvis Stable. No CVA tenderness. No tenderness to extremities, pedal edema, swelling, erythema or deformity. Integumentary: Appropriate color, dry, warm. 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 Fully oriented, alert. Appropriate mood/affect. Motor strength 5/5. No appreciable EOM palsy, facial droop or sensory deficit. 04/21/19 13:55 Past History - Past Medical History Allergies/Adverse Reactions: Allergies Allergy/AdvReac Type Severity Reaction Status Date / Time No Known Allergies Allergy Verified 08/05/18 00:40 Home Medications: Ambulatory Orders Aspirin Coated [Ecotrin -] 81 mg PO DAILY 03/11/18 Atorvastatin Ca [Lipitor] 80 mg PO HS 03/11/18 Carvedilol [Coreg -] 12.5 mg PO BID 03/11/18 Clopidogrel Bisulfate [Plavix] 75 mg PO DAILY 03/11/18 Furosemide [Lasix] 40 mg PO DAILY 03/11/18 Glyburide/Metformin HCl [Glyburide-Metformin 5-500 mg] 1 each PO DAILY 03/11/18 Insulin (Levemir) [Levemir Vial] 12 units SQ HS 03/11/18 Lisinopril [Prinivil] 20 mg PO DAILY 03/11/18 Sitagliptin Phosphate [Januvia] 100 mg PO 03/11/18 Fenofibric Acid [Trilipix -] 135 mg PO DAILY #30 cap 03/13/18 metroNIDAZOLE [Flagyl -] 500 mg PO TID #30 tablet 04/28/18 Nystatin Ointment [Mycostatin Ointment -] 1 applic TP BID #1 tube 08/05/18 Benzonatate [Tessalon Pearls -] 100 mg PO TID #21 capsule 04/21/19 Prednisone [Prednisone 50 MG TABLETS] 50 mg PO DAILY #5 tablet 04/21/19 Anemia: No Cardiac Disorders: Yes (mi 08/2017) COPD: Yes (former smoker) Dementia: Yes (TYPE II) Diabetes: Yes HTN: Yes (didnt take meds today) Hypercholesterolemia: Yes - Surgical History Cardiac Surgery: Yes (stent in 2012, [place]) - Immunization History Immunization Up to Date: Yes - Psycho Social/Smoking Cessation Hx Smoking Status: Yes Smoking History: Former smoker Have you smoked in the past 12 months: No Number of Cigarettes Smoked Daily: 5 If you are a former smoker, when did you quit?: 2004 Cigars Per Day: 0 Information on smoking cessation initiated: Yes 'Breaking Loose' booklet given: 06/20/16 Hx Alcohol Use: No Drug/Substance Use Hx: No Substance Use Type: None Hx Substance Use Treatment: No *Physical Exam - Vital Signs Last Vital Signs Temp Pulse Resp BP Pulse Ox 97.5 F L 100 H 20 147/75 94 L 04/21/19 13:05 04/21/19 13:05 04/21/19 13:05 04/21/19 13:05 04/21/19 13:05 Medical Decision Making - Medical Decision Making 04/21/19 13:41 54-year-old male with hx of DM, HTN, HLD, and 3 MIs [facility] with coughing x2 days. -flu symptoms -CXR Discharge - Discharge Information Problems reviewed: Yes Clinical Impression/Diagnosis: Upper respiratory infection Qualifiers: URI type: unspecified URI Qualified Code(s): J06.9 - Acute upper respiratory infection, unspecified Condition: Stable Disposition: HOME - Admission No - Additional Discharge Information Prescriptions: Benzonatate [Tessalon Pearls -] 100 mg PO TID #21 capsule Prednisone [Prednisone 50 MG TABLETS] 50 mg PO DAILY #5 tablet - Follow up/Referral Referrals: Heidy Chamberlain MD [Staff Physician] - - Patient Discharge Instructions Patient Printed Discharge Instructions: DI for Acute Bronchitis - Post Discharge Activity Work/Back to School Note: Back to Work
[2019-04-21] MEDS ORDERED: ALBUTEROL SO4 2.5/IPRATROPIUM 0.5 INH SOL 3 ML VIAL.NEB. NEB ONE ×2 (13:47→13:48)
== END 2019-04-21 14:20 | disposition home or self-care (01) ==
LOC: JERFT 12:53
PROC: 3E0F7GC Introduction of Other Therapeutic Substance into Respiratory Tract, Via Natural or Artificial Opening (ICD-10-PCS; principal; 2019-04-21)
DX: J06.9 Acute upper respiratory infection, unspecified (principal); I25.10 Atherosclerotic heart disease of native coronary artery without angina pectoris; I10 Essential (primary) hypertension; Z95.5 Presence of coronary angioplasty implant and graft; I25.2 Old myocardial infarction; E11.9 Type 2 diabetes mellitus without complications; Z79.4 Long term (current) use of insulin; E78.00 Pure hypercholesterolemia, unspecified; J44.9 Chronic obstructive pulmonary disease, unspecified; Z87.891 Personal history of nicotine dependence
CPT/HCPCS: 71046-TC-FY; 87804; 94640; 99281-25

== ENCOUNTER 2020-06-30 01:28 | Emergency (ER) | payer OTHER ==
[2020-06-30 01:51] VITALS: BP 152/90; TEMP 98.6; BMI 34.7
[2020-06-30 03:39] VITALS: PULSE 97
== END 2020-06-30 03:30 | disposition home or self-care (01) ==
LOC: JER 01:28
DX: R05 Cough (principal); Z03.818 Encounter for observation for suspected exposure to other biological agents ruled out
CPT/HCPCS: 71046-TC-FY; 87070; 87880; 99284-25; C9803; U0003

== ENCOUNTER 2020-09-16 14:46 | Emergency (ER) | payer OTHER ==
[2020-09-16 14:54] VITALS: BP 117/85; PULSE 100; BMI 33.9
[2020-09-16 15:17] VITALS: TEMP 98.3
[2020-09-16] MEDS ORDERED: ACETAMINOPHEN 500 MG TABLET (FP) PO ONE (15:21)
[2020-09-16] MEDS ORDERED: ACETAMINOPHEN 500 MG TABLET (FP) ONE (15:22)
== END 2020-09-16 17:03 | disposition home or self-care (01) ==
LOC: JERFT 14:46
DX: S22.31XA Fracture of one rib, right side, initial encounter for closed fracture (principal)
CPT/HCPCS: 71111-TC-FY; 99283-25

== ENCOUNTER 2021-01-26 10:02 | Emergency (ER) | payer OTHER ==
[2021-01-26 10:17] VITALS: BP 107/70; PULSE 118; BMI 28.2
[2021-01-26] MEDS ORDERED: BUPIVACAINE HCL/PF 0.5% (5 MG/ML) 30 ML VIAL IJ ONE (10:28)
[2021-01-26] MEDS ORDERED: BUPIVACAINE HCL/PF 0.5% (5MG/ML) 10 ML VIAL ONE (10:33)
== END 2021-01-26 10:43 | disposition home or self-care (01) ==
LOC: JER 10:02
DX: K08.89 Other specified disorders of teeth and supporting structures (principal)
CPT/HCPCS: 99283-25

== ENCOUNTER 2022-11-22 22:38 | Emergency (ER) | payer OTHER ==
[2022-11-22 22:45] VITALS: BP 111/60; PULSE 83; RESP 16; TEMP 98.1; BMI 31.3
[2022-11-22] MEDS ORDERED: LACTATED RINGERS SOLUTION 1000 ML INFUS.BAG IV ONE ×2 (22:48→23:08)
[2022-11-22 23:19] LABS: VENOUS BASE EXCESS -2.6 mmol/L (-2-2); VENOUS O2 SATURATION 77.1 % (70-80); VENOUS PCO2 39.1 mmHg (38-52); VENOUS PH 7.374 (7.310-7.410)
[2022-11-22 23:20] LABS: BASO % 0.8 % (0-2.0); EOS % 1.7 % (0-4.5); HEMATOCRIT 42.5 % (35.4-49); HEMOGLOBIN 14.7 GM/dL (11.7-16.9); LYMPH % 27.2 % (8-40); MCH 28.5 pg (25.7-33.7); MCHC 34.5 g/dl (32.0-35.9); MEAN CELL VOLUME 82.6 fl (80-96); MEAN PLT VOLUME 9.3 fl (7.5-11.1); MONO % 7.4 % (3.8-10.2); NEUT % 62.9 % (42.8-82.8); PLATELET COUNT 161 10^3/uL (134-434); RBC 5.15 M/mm3 (4.00-5.60); WHITE BLOOD COUNT 7.7 K/mm3 (4.0-10.0)
[2022-11-22 23:27] LABS: INR 0.97 (0.83-1.09); PROTHROMBIN TIME (PATIENT) 11.3 SEC (9.7-13.0)
[2022-11-22 23:47] LABS: POTASSIUM 3.6 mmol/L (3.5-5.1)
[2022-11-22 23:50] LABS: ALBUMIN 3.7 g/dl (3.4-5.0); BLOOD UREA NITROGEN 11.3 mg/dL (7-18); MAGNESIUM 2.1 mg/dL (1.8-2.4)
[2022-11-22 23:53] LABS: CREATININE 1.1 mg/dL (0.55-1.3)
[2022-11-22 23:55] LABS: BILIRUBIN,TOTAL 0.4 mg/dL (0.2-1); TOT PROT 7.2 g/dl (6.4-8.2)
[2022-11-23 01:48] LABS: EPI CELLS 1 /uL (0-25.1); HYALINE CASTS 0 /uL (0-3.1); PH,URINE 5.5 (5.0-8.0); URINE APPEARANCE CLEAR; URINE BACTERIA 4 /uL (0-1359); URINE BILIRUBIN NEGATIVE (NEGATIVE); URINE COLOR YELLOW; URINE GLUCOSE (UA) 3+ (NEGATIVE); URINE KETONE NEGATIVE (NEGATIVE); URINE LEUK ESTERASE NEGATIVE (NEGATIVE); URINE NITRITE NEGATIVE (NEGATIVE); URINE PROTEIN 1+ (NEGATIVE); URINE RBC 6 /uL (0-23.9); URINE UROBILINOGEN 0.2 mg/dL (0.2-1.0); URINE WBC 3 /uL (0-25.8)
== END 2022-11-23 02:42 | disposition home or self-care (01) ==
LOC: JER 22:38
DX: R73.9 Hyperglycemia, unspecified (principal); Z20.822 Contact with and (suspected) exposure to COVID-19
CPT/HCPCS: 0241U-QW; 36415; 80053; 81003; 82010; 82550; 82803; 82962; 83735; 84484; 85025; 85610; 85730; 87086; 93005; 93010; 99284-25

== ENCOUNTER 2023-05-09 23:26 | Observation (INO) | payer OTHER ==
[2023-05-10 00:56] LABS: BASO % 0.8 % (0-2.0); EOS % 2.1 % (0-4.5); HEMATOCRIT 38.7 % (35.4-49); HEMOGLOBIN 13.3 GM/dL (11.7-16.9); LYMPH % 28.4 % (8-40); MCH 28.9 pg (25.7-33.7); MCHC 34.4 g/dl (32.0-35.9); MEAN PLT VOLUME 9.2 fl (7.5-11.1); MONO % 6.7 % (3.8-10.2); PLATELET COUNT 171 10^3/uL (134-434); RBC 4.61 M/mm3 (4.00-5.60); RDW 13.8 % (11.9-15.9); WHITE BLOOD COUNT 7.9 K/mm3 (4.0-10.0)
[2023-05-10 01:00] LABS: EPI CELLS 1 /uL (0-25.1); HYALINE CASTS 0 /uL (0-3.1); URINE APPEARANCE CLEAR; URINE BACTERIA 1 /uL (0-1359); URINE BILIRUBIN NEGATIVE (NEGATIVE); URINE COLOR YELLOW; URINE GLUCOSE (UA) 3+ (NEGATIVE); URINE KETONE NEGATIVE (NEGATIVE); URINE LEUK ESTERASE NEGATIVE (NEGATIVE); URINE NITRITE NEGATIVE (NEGATIVE); URINE PROTEIN 1+ (NEGATIVE); URINE RBC 11 /uL (0-23.9); URINE UROBILINOGEN 0.2 mg/dL (0.2-1.0); URINE WBC 1 /uL (0-25.8)
[2023-05-10] MEDS ORDERED: ACETAMINOPHEN 1000 MG/100 ML BAG IVPB ONE (01:09)
[2023-05-10] MEDS ORDERED: ACETAMINOPHEN INJECTION 100 ML IVPB ONE (01:12)
[2023-05-10 01:15] LABS: INR 1.02 (0.83-1.09); PROTHROMBIN TIME (PATIENT) 11.8 SEC (9.7-13.0)
[2023-05-10 01:18] LABS: ACTIVATED PTT 29.8 SECONDS (25.2-36.5)
[2023-05-10 01:19] LABS: CHLORIDE 105 mmol/L (98-107); POTASSIUM 3.7 mmol/L (3.5-5.1); SODIUM 142 mmol/L (136-145)
[2023-05-10 01:21] LABS: ALBUMIN 3.4 g/dl (3.4-5.0); ANION GAP 6 mmol/L (4-13); BLOOD UREA NITROGEN 18.5 mg/dL (7-18); CALCIUM 8.2 mg/dL (8.5-10.1); CO2 31 mmol/L (21-32)
[2023-05-10 01:24] LABS: CREATININE 1.2 mg/dL (0.55-1.3); SGOT/AST 12 U/L (15-37); SGPT/ALT 21 U/L (13-61)
[2023-05-10 01:26] LABS: BILIRUBIN,TOTAL 0.4 mg/dL (0.2-1); TOT PROT 6.6 g/dl (6.4-8.2)
[2023-05-10 01:27] LABS: ALK PHOS 75 U/L (45-117)
[2023-05-10 01:42] LABS: GLUCOSE,RANDOM 404 mg/dL (74-106)
[2023-05-10] MEDS ORDERED: INSULIN REGULAR HUMAN 100 UNITS/ML *VIAL SQ ONE (02:01)
[2023-05-10] MEDS ORDERED: METOCLOPRAMIDE HCL INJECTION 10 MG/2 ML VIAL IVPUSH ONE (02:17)
[2023-05-10] MEDS ORDERED: METOCLOPRAMIDE HCL INJECTION 10 MG/2 ML VIAL ONE (02:18)
[2023-05-10] MEDS ORDERED: POTASSIUM CHLORIDE ORAL LIQUID 20 MEQ/15 ML PO ONE (05:24)
[2023-05-10] MEDS ORDERED: SODIUM CHLORIDE 1,000 ML IV SCH (05:30)
[2023-05-10] MEDS ORDERED: POTASSIUM CHLORIDE ORAL LIQUID 20 MEQ/15 ML ONE (05:39)
[2023-05-10] MEDS: INSULIN SLIDING SCALE (NOVOLOG) 1 VIAL SQ SCH ×4 (06:16→22:48)
[2023-05-10 07:09] LABS: HEMATOCRIT 37.8 % (35.4-49); HEMOGLOBIN 12.8 GM/dL (11.7-16.9); MCH 28.9 pg (25.7-33.7); MCHC 33.9 g/dl (32.0-35.9); MEAN CELL VOLUME 85.3 fl (80-96); MEAN PLT VOLUME 9.5 fl (7.5-11.1); PLATELET COUNT 170 10^3/uL (134-434); RBC 4.43 M/mm3 (4.00-5.60); RDW 13.7 % (11.9-15.9); WHITE BLOOD COUNT 7.8 K/mm3 (4.0-10.0)
[2023-05-10 07:21] LABS: POTASSIUM 3.8 mmol/L (3.5-5.1)
[2023-05-10 07:25] LABS: ALBUMIN 3.4 g/dl (3.4-5.0); BLOOD UREA NITROGEN 20.8 mg/dL (7-18); CALCIUM 8.4 mg/dL (8.5-10.1); MAGNESIUM 2.2 mg/dL (1.8-2.4)
[2023-05-10 07:29] LABS: TOT PROT 6.6 g/dl (6.4-8.2)
[2023-05-10 07:30] LABS: BILIRUBIN,TOTAL 0.4 mg/dL (0.2-1)
[2023-05-10] MEDS ORDERED: CARVEDILOL 12.5 MG TABLET (FP) ONE (09:47)
[2023-05-10] MEDS ORDERED: CLOPIDOGREL BISULFATE 75 MG TABLET (FP) ONE (09:53)
[2023-05-10] MEDS: CARVEDILOL 12.5 MG TABLET (FP) PO SCH ×2 (09:55→22:48)
[2023-05-10] MEDS ORDERED: ASPIRIN COATED 81 MG TABLET.EC PO SCH (10:00)
[2023-05-10] MEDS ORDERED: CLOPIDOGREL BISULFATE 75 MG TABLET (FP) PO SCH (10:00)
[2023-05-10] MEDS ORDERED: ENOXAPARIN NA (PORCINE) 40 MG/0.4 ML DISP.SYRIN SQ SCH (10:00)
[2023-05-10] MEDS ORDERED: FENOFIBRIC ACID 135 MG CAP PO SCH (10:00)
[2023-05-10 15:38] VITALS: RESP 18
[2023-05-10 21:20] VITALS: BP 133/83; PULSE 74; TEMP 98.3; BMI 31.5
[2023-05-10] MEDS ORDERED: INSULIN (NOVOLOG) ASPART 100 UNITS/ML 10ML VIAL ONE (21:43)
[2023-05-10] MEDS ORDERED: ATORVASTATIN CA 80 MG TABLET (FP) PO SCH (22:00)
[2023-05-11] MEDS ORDERED: PNEUMOC 20-VAL CONJ-DIP CRM/PF 0.5 ML SYRINGE IM ONE (10:00)
== END 2023-05-11 00:05 | disposition left against medical advice (07) ==
LOC: JER 23:26 → JERBED 05-10 02:17 → J4W 05-10 17:41
PROVIDERS: ADMIT Internal Medicine; ATTEND Internal Medicine
PROC: 3E033NZ Introduction of Analgesics, Hypnotics, Sedatives into Peripheral Vein, Percutaneous Approach (ICD-10-PCS; principal; 2023-05-10)
PROC: 3E023GC Introduction of Other Therapeutic Substance into Muscle, Percutaneous Approach (ICD-10-PCS; 2023-05-10)
PROC: 3E013VG Introduction of Insulin into Subcutaneous Tissue, Percutaneous Approach (ICD-10-PCS; 2023-05-10)
PROC: 3E033GC Introduction of Other Therapeutic Substance into Peripheral Vein, Percutaneous Approach (ICD-10-PCS; 2023-05-10)
PROC: 3E0337Z Introduction of Electrolytic and Water Balance Substance into Peripheral Vein, Percutaneous Approach (ICD-10-PCS; 2023-05-10)
DX: E11.65 Type 2 diabetes mellitus with hyperglycemia (principal); I25.2 Old myocardial infarction; I10 Essential (primary) hypertension; E78.5 Hyperlipidemia, unspecified; Z87.891 Personal history of nicotine dependence; Z91.148 Patient's other noncompliance with medication regimen for other reason; Z29.89 Encounter for other specified prophylactic measures; R42 Dizziness and giddiness; Z95.5 Presence of coronary angioplasty implant and graft; E66.8 Other obesity
CPT/HCPCS: 0241U-QW; 36415; 71045-TC-FY; 80048; 80053; 80061; 81003; 82962; 83036; 83735; 84443; 84484; 85025; 85027; 85610; 85730; 87086; 93005; 93010; 96361; 96372; 96374; 96375; 99285-25; G0378

== ENCOUNTER 2023-06-09 21:22 | Emergency (ER) | payer OTHER ==
[2023-06-09 21:37] VITALS: BP 158/98; PULSE 79; RESP 20; TEMP 98.3; BMI 31.9
[2023-06-09] MEDS ORDERED: SODIUM CHLORIDE 0.9% 500 ML INFUS.BAG IV ONE (22:08)
[2023-06-09 22:30] LABS: BASO % 0.9 % (0-2.0); EOS % 2.1 % (0-4.5); HEMATOCRIT 42.1 % (35.4-49); HEMOGLOBIN 14.4 GM/dL (11.7-16.9); LYMPH % 25.4 % (8-40); MCH 28.8 pg (25.7-33.7); MCHC 34.3 g/dl (32.0-35.9); MEAN PLT VOLUME 9.2 fl (7.5-11.1); MONO % 7.1 % (3.8-10.2); NEUT % 64.5 % (42.8-82.8); PLATELET COUNT 160 10^3/uL (134-434); RBC 5.01 M/mm3 (4.00-5.60); RDW 13.9 % (11.9-15.9); WHITE BLOOD COUNT 8.4 K/mm3 (4.0-10.0)
[2023-06-09 22:32] LABS: EPI CELLS 3 /uL (0-25.1); HYALINE CASTS 0 /uL (0-3.1); PH,URINE 5.5 (5.0-8.0); URINE APPEARANCE CLEAR; URINE BACTERIA 15 /uL (0-1359); URINE BILIRUBIN NEGATIVE (NEGATIVE); URINE COLOR YELLOW; URINE GLUCOSE (UA) 3+ (NEGATIVE); URINE KETONE NEGATIVE (NEGATIVE); URINE LEUK ESTERASE NEGATIVE (NEGATIVE); URINE NITRITE NEGATIVE (NEGATIVE); URINE PROTEIN 2+ (NEGATIVE); URINE RBC 14 /uL (0-23.9); URINE UROBILINOGEN 0.2 mg/dL (0.2-1.0); URINE WBC 11 /uL (0-25.8)
[2023-06-09 22:49] LABS: POTASSIUM 4.3 mmol/L (3.5-5.1)
[2023-06-09 22:51] LABS: ALBUMIN 3.7 g/dl (3.4-5.0); BLOOD UREA NITROGEN 20.1 mg/dL (7-18); CALCIUM 8.6 mg/dL (8.5-10.1)
[2023-06-09 22:54] LABS: CREATININE 1.2 mg/dL (0.55-1.3)
[2023-06-09 22:55] LABS: BILIRUBIN,TOTAL 0.4 mg/dL (0.2-1); TOT PROT 7.3 g/dl (6.4-8.2)
== END 2023-06-10 01:18 | disposition home or self-care (01) ==
LOC: JER 21:22
DX: E11.65 Type 2 diabetes mellitus with hyperglycemia (principal); R68.2 Dry mouth, unspecified; R35.0 Frequency of micturition
CPT/HCPCS: 36415; 80053; 81003; 82962; 83735; 85025; 87086; 93005; 93010; 99284-25

== ENCOUNTER 2023-06-21 16:57 | Emergency (ER) | payer OTHER ==
[2023-06-21 17:13] VITALS: BP 155/88; PULSE 82; RESP 16; TEMP 99; BMI 31.6
[2023-06-21] MEDS ORDERED: SODIUM CHLORIDE 0.9% 500 ML INFUS.BAG IV ONE (18:15)
[2023-06-21 18:55] LABS: VENOUS BASE EXCESS -0.5 mmol/L (-2-2); VENOUS O2 SATURATION 91.9 % (70-80); VENOUS PCO2 38.4 mmHg (38-52); VENOUS PH 7.411 (7.310-7.410)
[2023-06-21 18:58] LABS: BASO % 0.9 % (0-2.0); EOS % 2.2 % (0-4.5); HEMATOCRIT 42.2 % (35.4-49); HEMOGLOBIN 14.6 GM/dL (11.7-16.9); LYMPH % 25.6 % (8-40); MCH 29.1 pg (25.7-33.7); MCHC 34.6 g/dl (32.0-35.9); MEAN CELL VOLUME 83.9 fl (80-96); MEAN PLT VOLUME 9.7 fl (7.5-11.1); MONO % 6.5 % (3.8-10.2); NEUT % 64.8 % (42.8-82.8); PLATELET COUNT 161 10^3/uL (134-434); RBC 5.03 M/mm3 (4.00-5.60); RDW 13.8 % (11.9-15.9); WHITE BLOOD COUNT 8.7 K/mm3 (4.0-10.0)
[2023-06-21 19:02] LABS: EPI CELLS 2 /uL (0-25.1); HYALINE CASTS 0 /uL (0-3.1); PH,URINE 5.5 (5.0-8.0); URINE APPEARANCE CLEAR; URINE BACTERIA 16 /uL (0-1359); URINE BILIRUBIN NEGATIVE (NEGATIVE); URINE COLOR YELLOW; URINE GLUCOSE (UA) 3+ (NEGATIVE); URINE KETONE NEGATIVE (NEGATIVE); URINE LEUK ESTERASE NEGATIVE (NEGATIVE); URINE NITRITE NEGATIVE (NEGATIVE); URINE PROTEIN 1+ (NEGATIVE); URINE RBC 7 /uL (0-23.9); URINE UROBILINOGEN 0.2 mg/dL (0.2-1.0); URINE WBC 8 /uL (0-25.8)
[2023-06-21 19:34] LABS: POTASSIUM 4.7 mmol/L (3.5-5.1)
[2023-06-21 19:36] LABS: ALBUMIN 3.6 g/dl (3.4-5.0); CALCIUM 9.1 mg/dL (8.5-10.1)
[2023-06-21 19:37] LABS: BLOOD UREA NITROGEN 15.4 mg/dL (7-18); MAGNESIUM 2.2 mg/dL (1.8-2.4)
[2023-06-21 19:40] LABS: CREATININE 1.1 mg/dL (0.55-1.3)
[2023-06-21 19:41] LABS: BILIRUBIN,TOTAL 0.3 mg/dL (0.2-1); TOT PROT 7.5 g/dl (6.4-8.2)
[2023-06-21] MEDS ORDERED: metFORMIN HCL 500 MG TABLET (FP) PO ONE (20:32)
[2023-06-21] MEDS ORDERED: metFORMIN HCL 500 MG TABLET (FP) ONE (20:56)
== END 2023-06-21 21:27 | disposition home or self-care (01) ==
LOC: JER 16:57
DX: R73.9 Hyperglycemia, unspecified (principal); R20.2 Paresthesia of skin; Z20.822 Contact with and (suspected) exposure to COVID-19
CPT/HCPCS: 0241U-QW; 36415; 80053; 81003; 82010; 82803; 82962; 83735; 85025; 87086; 93005; 93010; 99284-25

== ENCOUNTER 2023-12-11 18:01 | Emergency (ER) | payer OTHER ==
[2023-12-11 18:20] VITALS: BP 138/80; PULSE 75; RESP 18; TEMP 98.6; BMI 31.6
[2023-12-11] MEDS: SODIUM CHLORIDE 1,000 ML IV STA (19:25)
[2023-12-11 19:27] LABS: BASO % 0.8 % (0-2.0); EOS % 2.4 % (0-4.5); HEMATOCRIT 39.1 % (35.4-49); HEMOGLOBIN 13.6 GM/dL (11.7-16.9); LYMPH % 29.6 % (8-40); MCH 29.6 pg (25.7-33.7); MCHC 34.7 g/dl (32.0-35.9); MEAN CELL VOLUME 85.4 fl (80-96); MEAN PLT VOLUME 9.8 fl (7.5-11.1); MONO % 6.4 % (3.8-10.2); NEUT % 60.8 % (42.8-82.8); PLATELET COUNT 147 10^3/uL (134-434); RBC 4.58 M/mm3 (4.00-5.60); RDW 14.1 % (11.9-15.9); WHITE BLOOD COUNT 6.9 K/mm3 (4.0-10.0)
[2023-12-11 19:43] LABS: CALCIUM 8.5 mg/dL (8.5-10.1)
[2023-12-11 19:44] LABS: ALBUMIN 3.5 g/dl (3.4-5.0); BLOOD UREA NITROGEN 17.4 mg/dL (7-18)
[2023-12-11 19:47] LABS: CREATININE 1.2 mg/dL (0.55-1.3)
[2023-12-11 19:48] LABS: BILIRUBIN,TOTAL 0.4 mg/dL (0.2-1)
[2023-12-11 19:49] LABS: TOT PROT 6.8 g/dl (6.4-8.2)
[2023-12-11] MEDS ORDERED: LOPERAMIDE HCL 2 MG CAPSULE ONE (20:45)
[2023-12-11] MEDS: LOPERAMIDE HCL 2 MG CAPSULE PO ONE (20:58)
== END 2023-12-12 02:55 | disposition home or self-care (01) ==
LOC: JER 18:01
PROC: 3E0337Z Introduction of Electrolytic and Water Balance Substance into Peripheral Vein, Percutaneous Approach (ICD-10-PCS; principal; 2023-12-11)
DX: R19.7 Diarrhea, unspecified (principal)
CPT/HCPCS: 36415; 80053; 82010; 82550; 82962; 83605; 84484; 85025; 93005; 93010; 99284-25

== ENCOUNTER 2024-01-29 15:08 | Inpatient (IN) | payer OTHER ==
[2024-01-29] MEDS: LACTATED RINGERS SOLUTION 1000 ML INFUS.BAG IV ONE (16:16)
[2024-01-29 16:17] LABS: BASO % 1.1 % (0-2.0); EOS % 1.9 % (0-4.5); HEMATOCRIT 39.2 % (35.4-49); HEMOGLOBIN 13.9 GM/dL (11.7-16.9); LYMPH % 25.2 % (8-40); MCH 29.8 pg (25.7-33.7); MCHC 35.5 g/dl (32.0-35.9); MEAN CELL VOLUME 83.7 fl (80-96); MEAN PLT VOLUME 8.8 fl (7.5-11.1); MONO % 6.6 % (3.8-10.2); NEUT % 65.2 % (42.8-82.8); PLATELET COUNT 152 10^3/uL (134-434); RBC 4.68 M/mm3 (4.00-5.60); RDW 13.9 % (11.9-15.9); WHITE BLOOD COUNT 7.1 K/mm3 (4.0-10.0)
[2024-01-29 16:33] LABS: POTASSIUM 4.1 mmol/L (3.5-5.1)
[2024-01-29 16:36] LABS: ALBUMIN 3.5 g/dl (3.4-5.0); BLOOD UREA NITROGEN 22.7 mg/dL (7-18); CALCIUM 9.3 mg/dL (8.5-10.1)
[2024-01-29 16:39] LABS: CREATININE 1.2 mg/dL (0.55-1.3)
[2024-01-29 16:40] LABS: BILIRUBIN,TOTAL 0.4 mg/dL (0.2-1); TOT PROT 6.9 g/dl (6.4-8.2)
[2024-01-29] MEDS: SODIUM CHLORIDE 0.45% 1,000 ML IV SCH (19:39)
[2024-01-29] MEDS ORDERED: GABAPENTIN 100 MG CAPSULE ONE (20:43)
[2024-01-29] MEDS ORDERED: ATORVASTATIN CA 80 MG TABLET (FP) ONE (20:43)
[2024-01-29] MEDS ORDERED: CARVEDILOL 6.25 MG TABLET (FP) ONE (20:43)
[2024-01-29] MEDS ORDERED: INSULIN (LEVEMIR) 100 UNITS/ML UNITS SQ ONE (20:44)
[2024-01-29] MEDS: CARVEDILOL 12.5 MG TABLET (FP) PO SCH (21:31)
[2024-01-29] MEDS: INSULIN (LEVEMIR) 100 UNITS/ML UNITS SQ SCH (21:31)
[2024-01-29] MEDS: GABAPENTIN 100 MG CAPSULE PO SCH (21:33)
[2024-01-29] MEDS: ATORVASTATIN CA 80 MG TABLET (FP) PO SCH (21:33)
[2024-01-29 21:39] LABS: EPI CELLS 0 /uL (0-25.1); HYALINE CASTS 0 /uL (0-3.1); URINE APPEARANCE CLEAR; URINE BACTERIA 3 /uL (0-1359); URINE BILIRUBIN NEGATIVE (NEGATIVE); URINE COLOR YELLOW; URINE GLUCOSE (UA) 3+ (NEGATIVE); URINE KETONE NEGATIVE (NEGATIVE); URINE LEUK ESTERASE NEGATIVE (NEGATIVE); URINE NITRITE NEGATIVE (NEGATIVE); URINE PROTEIN 1+ (NEGATIVE); URINE RBC 10 /uL (0-23.9); URINE UROBILINOGEN 0.2 mg/dL (0.2-1.0); URINE WBC 1 /uL (0-25.8)
[2024-01-30] MEDS ORDERED: GABAPENTIN 100 MG CAPSULE ONE ×2 (05:29→14:35)
[2024-01-30] MEDS ORDERED: metFORMIN HCL 500 MG TABLET (FP) ONE ×2 (07:08→17:32)
[2024-01-30 07:10] LABS: BASO % 0.6 % (0-2.0); HEMATOCRIT 39.9 % (35.4-49); HEMOGLOBIN 14.1 GM/dL (11.7-16.9); LYMPH % 27.9 % (8-40); MCH 29.8 pg (25.7-33.7); MCHC 35.2 g/dl (32.0-35.9); MEAN CELL VOLUME 84.5 fl (80-96); MEAN PLT VOLUME 9.3 fl (7.5-11.1); MONO % 6.3 % (3.8-10.2); NEUT % 63.2 % (42.8-82.8); PLATELET COUNT 139 10^3/uL (134-434); RBC 4.73 M/mm3 (4.00-5.60); RDW 14.1 % (11.9-15.9); WHITE BLOOD COUNT 8.4 K/mm3 (4.0-10.0)
[2024-01-30 07:23] LABS: CALCIUM 8.6 mg/dL (8.5-10.1)
[2024-01-30 07:24] LABS: BLOOD UREA NITROGEN 17.9 mg/dL (7-18)
[2024-01-30] MEDS: INSULIN ASPART SLIDING SCALE (NOVOLOG) 1 VIAL SQ SCH (07:26)
[2024-01-30 07:27] LABS: CREATININE 0.9 mg/dL (0.55-1.3)
[2024-01-30] MEDS ORDERED: INSULIN ASPART SLIDING SCALE (NOVOLOG) 1 VIAL SQ ONE ×4 (07:28→17:35)
[2024-01-30] MEDS ORDERED: FUROSEMIDE 40 MG TABLET (FP) ONE (08:36)
[2024-01-30] MEDS ORDERED: CLOPIDOGREL BISULFATE 75 MG TABLET (FP) ONE (08:36)
[2024-01-30] MEDS ORDERED: CARVEDILOL 6.25 MG TABLET (FP) ONE (08:36)
[2024-01-30] MEDS ORDERED: ASPIRIN COATED 81 MG TABLET.EC ONE (08:36)
[2024-01-30] MEDS: ASPIRIN COATED 81 MG TABLET.EC PO SCH (09:35)
[2024-01-30] MEDS: FUROSEMIDE 40 MG TABLET (FP) PO SCH (09:35)
[2024-01-30] MEDS: FENOFIBRIC ACID 135 MG CAP PO SCH (09:35)
[2024-01-30] MEDS: CLOPIDOGREL BISULFATE 75 MG TABLET (FP) PO SCH (09:35)
[2024-01-30] MEDS ORDERED: LISINOPRIL 5 MG TABLET ONE (14:35)
[2024-01-30] MEDS: LISINOPRIL 5 MG TABLET PO SCH (14:41)
[2024-01-30] MEDS: INSULIN (LEVEMIR) 100 UNITS/ML UNITS SQ SCH (21:28)
[2024-01-31 04:47] VITALS: RESP 18
[2024-01-31 05:36] VITALS: BMI 27.2
[2024-01-31] MEDS: INSULIN ASPART SLIDING SCALE (NOVOLOG) 1 VIAL SQ SCH (06:06)
[2024-01-31] MEDS: GABAPENTIN 100 MG CAPSULE PO SCH (06:06)
[2024-01-31] MEDS: SODIUM CHLORIDE 0.45% 1,000 ML IV SCH (06:07)
[2024-01-31 08:40] LABS: HEMATOCRIT 39.7 % (35.4-49); MCHC 35.2 g/dl (32.0-35.9); MEAN CELL VOLUME 85.1 fl (80-96); MEAN PLT VOLUME 8.9 fl (7.5-11.1); PLATELET COUNT 138 10^3/uL (134-434); RBC 4.66 M/mm3 (4.00-5.60); RDW 14.1 % (11.9-15.9); WHITE BLOOD COUNT 7.3 K/mm3 (4.0-10.0)
[2024-01-31 09:14] LABS: POTASSIUM 4.1 mmol/L (3.5-5.1)
[2024-01-31] MEDS: LISINOPRIL 5 MG TABLET PO SCH (09:18)
[2024-01-31] MEDS: CLOPIDOGREL BISULFATE 75 MG TABLET (FP) PO SCH (09:18)
[2024-01-31 10:02] LABS: PHOSPHOROUS 3.5 mg/dL (2.5-4.9)
[2024-01-31 10:03] LABS: BILIRUBIN,TOTAL 0.6 mg/dL (0.2-1); TOT PROT 7.2 g/dl (6.4-8.2)
[2024-01-31 10:06] LABS: ALBUMIN 3.5 g/dl (3.4-5.0); BLOOD UREA NITROGEN 17.9 mg/dL (7-18)
[2024-01-31 10:08] LABS: CALCIUM 8.7 mg/dL (8.5-10.1)
[2024-01-31 10:09] LABS: MAGNESIUM 1.9 mg/dL (1.8-2.4)
[2024-01-31] MEDS: INSULIN (LEVEMIR) 100 UNITS/ML UNITS SQ SCH (21:19)
[2024-01-31] MEDS: ATORVASTATIN CA 80 MG TABLET (FP) PO SCH (21:19)
[2024-02-01 08:28] LABS: HEMATOCRIT 38.5 % (35.4-49); HEMOGLOBIN 13.7 GM/dL (11.7-16.9); MCH 29.8 pg (25.7-33.7); MCHC 35.5 g/dl (32.0-35.9); MEAN CELL VOLUME 83.9 fl (80-96); MEAN PLT VOLUME 9.3 fl (7.5-11.1); PLATELET COUNT 148 10^3/uL (134-434); RBC 4.59 M/mm3 (4.00-5.60); WHITE BLOOD COUNT 7.3 K/mm3 (4.0-10.0)
[2024-02-01 08:38] VITALS: BP 123/83; PULSE 82; TEMP 98.2
[2024-02-01 08:53] LABS: ALBUMIN 3.6 g/dl (3.4-5.0); BLOOD UREA NITROGEN 16.7 mg/dL (7-18); CALCIUM 8.6 mg/dL (8.5-10.1); MAGNESIUM 1.8 mg/dL (1.8-2.4)
[2024-02-01 08:56] LABS: CREATININE 0.9 mg/dL (0.55-1.3); PHOSPHOROUS 3.2 mg/dL (2.5-4.9)
[2024-02-01 08:58] LABS: BILIRUBIN,TOTAL 0.6 mg/dL (0.2-1); TOT PROT 7.1 g/dl (6.4-8.2)
== END 2024-02-01 11:13 | disposition home or self-care (01) | DRG 48 ==
LOC: JER 15:08 → JERBED 17:31 → OBSVTOIN 01-30 18:36 → J4W 01-30 19:01
PROVIDERS: ADMIT Internal Medicine; ATTEND Internal Medicine
DX: E11.42 Type 2 diabetes mellitus with diabetic polyneuropathy (principal); E11.65 Type 2 diabetes mellitus with hyperglycemia; I10 Essential (primary) hypertension; E78.5 Hyperlipidemia, unspecified; I25.10 Atherosclerotic heart disease of native coronary artery without angina pectoris; J44.9 Chronic obstructive pulmonary disease, unspecified; I25.2 Old myocardial infarction; G47.30 Sleep apnea, unspecified; H53.8 Other visual disturbances; R53.1 Weakness; I65.01 Occlusion and stenosis of right vertebral artery; G56.23 Lesion of ulnar nerve, bilateral upper limbs; Z86.73 Personal history of transient ischemic attack (TIA), and cerebral infarction without residual deficits; Z95.5 Presence of coronary angioplasty implant and graft
CPT/HCPCS: 36415; 70450-TC; 70545-TC; 80048; 80053; 81003; 82962; 83036; 83735; 84100; 85025; 85027; 87086; 97116-GP; 97162-GP; 99285-25; G0378

== ENCOUNTER 2024-02-14 20:49 | Emergency (ER) | payer OTHER ==
[2024-02-14 21:07] VITALS: BP 123/75; PULSE 73; RESP 20; TEMP 97.9; BMI 29.3
[2024-02-14] MEDS: SODIUM CHLORIDE 0.9% 500 ML INFUS.BAG IV ONE (22:46)
[2024-02-14 22:50] LABS: HEMATOCRIT 39.4 % (35.4-49); HEMOGLOBIN 13.4 GM/dL (11.7-16.9); MCH 29.4 pg (25.7-33.7); MCHC 34.1 g/dl (32.0-35.9); MEAN CELL VOLUME 86.2 fl (80-96); MEAN PLT VOLUME 9.2 fl (7.5-11.1); PLATELET COUNT 175 10^3/uL (134-434); RBC 4.57 M/mm3 (4.00-5.60); RDW 14.3 % (11.9-15.9); WHITE BLOOD COUNT 8.7 K/mm3 (4.0-10.0)
[2024-02-14 23:08] LABS: POTASSIUM 4.8 mmol/L (3.5-5.1)
[2024-02-14 23:10] LABS: CALCIUM 8.4 mg/dL (8.5-10.1)
[2024-02-14 23:11] LABS: ALBUMIN 3.6 g/dl (3.4-5.0); BLOOD UREA NITROGEN 27.8 mg/dL (7-18)
[2024-02-14 23:14] LABS: CREATININE 1.5 mg/dL (0.55-1.3)
[2024-02-14 23:15] LABS: BILIRUBIN,TOTAL 0.6 mg/dL (0.2-1); TOT PROT 7.4 g/dl (6.4-8.2)
[2024-02-15] MEDS: SODIUM CHLORIDE 0.9% 500 ML INFUS.BAG IV ONE (00:02)
== END 2024-02-15 02:35 | disposition home or self-care (01) ==
LOC: JER 20:49
DX: E11.65 Type 2 diabetes mellitus with hyperglycemia (principal); Z79.4 Long term (current) use of insulin; R63.0 Anorexia; R19.7 Diarrhea, unspecified
CPT/HCPCS: 36415; 80053; 82962; 83690; 85027; 99284-25

== ENCOUNTER 2024-04-19 20:22 | Emergency (ER) | payer OTHER ==
[2024-04-19 20:32] VITALS: BP 126/74; PULSE 80; RESP 18; TEMP 98; BMI 29.0
[2024-04-19 21:21] LABS: BASO % 0.9 % (0-2.0); EOS % 3.2 % (0-4.5); HEMATOCRIT 39.8 % (35.4-49); HEMOGLOBIN 13.8 GM/dL (11.7-16.9); LYMPH % 29.6 % (8-40); MCHC 34.7 g/dl (32.0-35.9); MEAN CELL VOLUME 86.3 fl (80-96); MEAN PLT VOLUME 8.6 fl (7.5-11.1); NEUT % 59.3 % (42.8-82.8); PLATELET COUNT 166 10^3/uL (134-434); RBC 4.62 M/mm3 (4.00-5.60)
[2024-04-19 21:26] LABS: VENOUS BASE EXCESS -4.2 mmol/L (-2-2); VENOUS O2 SATURATION 37.8 % (70-80); VENOUS PCO2 54.6 mmHg (38-52); VENOUS PH 7.256 (7.310-7.410)
[2024-04-19] MEDS: metFORMIN HCL 500 MG TABLET (FP) PO ONE (21:26)
[2024-04-19] MEDS: INSULIN (LEVEMIR) 100 UNITS/ML UNITS SQ ONE (21:26)
[2024-04-19] MEDS: INSULIN (NOVOLOG) ASPART 100 UNITS/ML 10ML VIAL SQ ONE (21:26)
[2024-04-19] MEDS ORDERED: metFORMIN HCL 500 MG TABLET (FP) ONE (21:28)
[2024-04-19 21:45] LABS: POTASSIUM 3.8 mmol/L (3.5-5.1)
[2024-04-19 21:48] LABS: ALBUMIN 3.8 g/dl (3.4-5.0); CALCIUM 8.6 mg/dL (8.5-10.1)
[2024-04-19 21:49] LABS: BLOOD UREA NITROGEN 26.7 mg/dL (7-18); MAGNESIUM 2.2 mg/dL (1.8-2.4)
[2024-04-19 21:52] LABS: CREATININE 1.4 mg/dL (0.55-1.3)
[2024-04-19 21:53] LABS: BILIRUBIN,TOTAL 0.4 mg/dL (0.2-1); TOT PROT 7.6 g/dl (6.4-8.2)
== END 2024-04-19 23:13 | disposition home or self-care (01) ==
LOC: JER 20:22
PROC: 3E013VG Introduction of Insulin into Subcutaneous Tissue, Percutaneous Approach (ICD-10-PCS; principal; 2024-04-19)
DX: E11.65 Type 2 diabetes mellitus with hyperglycemia (principal); R68.2 Dry mouth, unspecified; R19.7 Diarrhea, unspecified; R74.8 Abnormal levels of other serum enzymes; Z91.148 Patient's other noncompliance with medication regimen for other reason
CPT/HCPCS: 36415; 80053; 82010; 82803; 82962; 83605; 83690; 83735; 85025; 99284-25

== ENCOUNTER 2024-06-23 23:16 | Emergency (ER) | payer OTHER ==
[2024-06-23 23:25] VITALS: BP 178/98; PULSE 94; RESP 18; TEMP 97.5; BMI 31.4
[2024-06-23] MEDS ORDERED: ACETAMINOPHEN 500 MG TABLET (FP) ONE (23:48)
[2024-06-23] MEDS: ACETAMINOPHEN 500 MG TABLET (FP) PO ONE (23:49)
[2024-06-24] MEDS ORDERED: LISINOPRIL 5 MG TABLET ONE (00:55)
[2024-06-24] MEDS: LISINOPRIL 5 MG TABLET PO ONE (00:57)
[2024-06-24] MEDS ORDERED: metFORMIN HCL 500 MG TABLET (FP) ONE (01:10)
[2024-06-24] MEDS ORDERED: INSULIN REGULAR HUMAN 100 UNITS/ML *VIAL ONE (01:12)
[2024-06-24] MEDS: INSULIN REGULAR HUMAN 100 UNITS/ML *VIAL IVPUSH ONE (01:14)
[2024-06-24] MEDS: metFORMIN HCL 500 MG TABLET (FP) PO ONE (01:14)
== END 2024-06-24 01:15 | disposition home or self-care (01) ==
LOC: JER 23:16
PROC: 3E033GC Introduction of Other Therapeutic Substance into Peripheral Vein, Percutaneous Approach (ICD-10-PCS; principal; 2024-06-24)
DX: R51.9 Headache, unspecified (principal); I10 Essential (primary) hypertension; Z20.822 Contact with and (suspected) exposure to COVID-19
CPT/HCPCS: 0241U-QW; 82962; 99284-25

== ENCOUNTER 2024-06-24 07:52 | Observation (INO) | payer OTHER ==
[2024-06-24 07:58] VITALS: BMI 31.6
[2024-06-24 09:24] LABS: BASO % 1.1 % (0-2.0); EOS % 2.3 % (0-4.5); HEMATOCRIT 36.4 % (35.4-49); HEMOGLOBIN 12.5 GM/dL (11.7-16.9); LYMPH % 22.3 % (8-40); MCHC 34.3 g/dl (32.0-35.9); MEAN CELL VOLUME 87.4 fl (80-96); MONO % 8.3 % (3.8-10.2); PLATELET COUNT 122 10^3/uL (134-434); RBC 4.17 M/mm3 (4.00-5.60); RDW 13.3 % (11.9-15.9)
[2024-06-24 09:25] LABS: INR 0.92 (0.83-1.09); PROTHROMBIN TIME (PATIENT) 10.6 SEC (9.7-13.0)
[2024-06-24 09:28] LABS: ACTIVATED PTT 29.4 SECONDS (25.2-36.5); POTASSIUM 4.1 mmol/L (3.5-5.1)
[2024-06-24 09:29] LABS: CALCIUM 8.3 mg/dL (8.5-10.1)
[2024-06-24 09:31] LABS: ALBUMIN 3.2 g/dl (3.4-5.0); BLOOD UREA NITROGEN 25.6 mg/dL (7-18)
[2024-06-24 09:33] LABS: CREATININE 1.1 mg/dL (0.55-1.3)
[2024-06-24] MEDS ORDERED: ASPIRIN 81 MG CHEWABLE TABLETS ONE (09:33)
[2024-06-24 09:34] LABS: BILIRUBIN,TOTAL 0.3 mg/dL (0.2-1); TOT PROT 6.5 g/dl (6.4-8.2)
[2024-06-24] MEDS: ASPIRIN 81 MG CHEWABLE TABLETS PO ONE (09:35)
[2024-06-24] MEDS ORDERED: metFORMIN HCL 500 MG TABLET (FP) ONE ×2 (10:39→16:43)
[2024-06-24] MEDS: INSULIN REGULAR HUMAN 100 UNITS/ML *VIAL SQ ONE (10:48)
[2024-06-24] MEDS: metFORMIN HCL 500 MG TABLET (FP) PO ONE (10:48)
[2024-06-24] MEDS: CLOPIDOGREL BISULFATE 75 MG TABLET (FP) PO ONE (11:56)
[2024-06-24] MEDS: LISINOPRIL 10 MG TABLET PO ONE (11:56)
[2024-06-24] MEDS: ATORVASTATIN CA 80 MG TABLET (FP) PO ONE (12:09)
[2024-06-24] MEDS: metFORMIN HCL 500 MG TABLET (FP) PO SCH (16:49)
[2024-06-24] MEDS: INSULIN (NOVOLOG) ASPART 100 UNITS/ML 10ML VIAL SQ SCH (16:50)
[2024-06-24] MEDS ORDERED: ENOXAPARIN NA (PORCINE) 40 MG/0.4 ML DISP.SYRIN SQ ONE (18:22)
[2024-06-24] MEDS: ENOXAPARIN NA (PORCINE) 40 MG/0.4 ML DISP.SYRIN SQ SCH (18:34)
[2024-06-24] MEDS: INSULIN (LEVEMIR) 100 UNITS/ML UNITS SQ SCH (22:21)
[2024-06-25 01:27] VITALS: RESP 16
[2024-06-25] MEDS ORDERED: metFORMIN HCL 500 MG TABLET (FP) ONE (07:39)
[2024-06-25 09:00] VITALS: BP 144/83; PULSE 87; TEMP 98.1
[2024-06-25] MEDS ORDERED: ENOXAPARIN NA (PORCINE) 40 MG/0.4 ML DISP.SYRIN SQ ONE (09:26)
[2024-06-25] MEDS ORDERED: LISINOPRIL 10 MG TABLET ONE (09:26)
[2024-06-25] MEDS ORDERED: ASPIRIN 81 MG CHEWABLE TABLETS ONE (09:26)
[2024-06-25] MEDS: ASPIRIN 81 MG CHEWABLE TABLETS PO SCH (09:43)
[2024-06-25] MEDS: LISINOPRIL 10 MG TABLET PO SCH (09:43)
[2024-06-25] MEDS ORDERED: LOPERAMIDE HCL 2 MG CAPSULE ONE (10:34)
[2024-06-25] MEDS: LOPERAMIDE HCL 2 MG CAPSULE PO ONE (10:41)
== END 2024-06-25 11:29 | disposition home or self-care (01) ==
LOC: JER 07:52 → JERBED 14:13
PROVIDERS: ADMIT Internal Medicine; ATTEND Internal Medicine
PROC: 3E013VG Introduction of Insulin into Subcutaneous Tissue, Percutaneous Approach (ICD-10-PCS; principal; 2024-06-24)
PROC: 3E013GC Introduction of Other Therapeutic Substance into Subcutaneous Tissue, Percutaneous Approach (ICD-10-PCS; 2024-06-24)
DX: R07.89 Other chest pain (principal); I25.10 Atherosclerotic heart disease of native coronary artery without angina pectoris; I10 Essential (primary) hypertension; E11.9 Type 2 diabetes mellitus without complications; E78.5 Hyperlipidemia, unspecified; I25.2 Old myocardial infarction; R74.8 Abnormal levels of other serum enzymes; Z95.5 Presence of coronary angioplasty implant and graft; Z87.891 Personal history of nicotine dependence; Z79.4 Long term (current) use of insulin; Z79.84 Long term (current) use of oral hypoglycemic drugs
CPT/HCPCS: 36415; 71045-TC-FY; 80053; 82962; 83036; 84484; 85025; 85610; 85730; 93005; 93010; 93306-TC; 96372; 99285-25; G0378

== ENCOUNTER 2024-07-23 17:16 | Inpatient (IN) | payer OTHER ==
[2024-07-23] MEDS ORDERED: ALBUTEROL SO4 2.5/IPRATROPIUM 0.5 INH SOL 3 ML VIAL.NEB. NEB ONE ×2 (17:34→18:29)
[2024-07-23] MEDS ORDERED: methylPREDNISolone NA SUCC 125 MG/2 ML VIAL ONE (17:34)
[2024-07-23] MEDS ORDERED: MAGNESIUM SULFATE IN WATER 2 GM/50 ML IVPB IVPB ONE (17:34)
[2024-07-23 17:47] LABS: VENOUS BASE EXCESS -3.5 mmol/L (-2-2); VENOUS O2 SATURATION 27.8 % (70-80); VENOUS PCO2 58.2 mmHg (38-52); VENOUS PH 7.247 (7.310-7.410)
[2024-07-23 17:48] LABS: EOS % 2.2 % (0-4.5); HEMATOCRIT 40.7 % (35.4-49); HEMOGLOBIN 13.7 GM/dL (11.7-16.9); LYMPH % 16.7 % (8-40); MCH 29.4 pg (25.7-33.7); MCHC 33.7 g/dl (32.0-35.9); MEAN CELL VOLUME 87.4 fl (80-96); MONO % 6.1 % (3.8-10.2); PLATELET COUNT 170 10^3/uL (134-434); RBC 4.66 M/mm3 (4.00-5.60); RDW 13.9 % (11.9-15.9); WHITE BLOOD COUNT 9.8 K/mm3 (4.0-10.0)
[2024-07-23] MEDS: MAGNESIUM SULF 50% (8.12 MEQ/2 ML-1 GM VIAL) IVPB ONE (17:48)
[2024-07-23] MEDS: methylPREDNISolone NA SUCC 125 MG/2 ML VIAL IVPB ONE (17:48)
[2024-07-23 17:55] LABS: PROTHROMBIN TIME (PATIENT) 11.3 SEC (9.7-13.0)
[2024-07-23 18:01] LABS: POTASSIUM 3.7 mmol/L (3.5-5.1)
[2024-07-23 18:03] LABS: CALCIUM 8.5 mg/dL (8.5-10.1)
[2024-07-23 18:04] LABS: ALBUMIN 3.7 g/dl (3.4-5.0); BLOOD UREA NITROGEN 22.5 mg/dL (7-18)
[2024-07-23 18:07] LABS: CREATININE 1.1 mg/dL (0.55-1.3)
[2024-07-23 18:09] LABS: BILIRUBIN,TOTAL 0.4 mg/dL (0.2-1); TOT PROT 7.5 g/dl (6.4-8.2)
[2024-07-23] MEDS: ALBUTEROL SO4 0.083% IH SOL 2.5 MG/3 ML VIAL.NEB. NEB ONE (18:09)
[2024-07-23] MEDS: ALBUTEROL SO4 2.5/IPRATROPIUM 0.5 INH SOL 3 ML VIAL.NEB. NEB SCH (18:09)
[2024-07-23] MEDS ORDERED: CEFTRIAXONE 1 G/50 ML PREMIX 50 ML IVPB ONE (18:41)
[2024-07-23] MEDS ORDERED: FUROSEMIDE 40 MG/4 ML INJECTABLE VIAL ONE ×2 (18:42→23:21)
[2024-07-23] MEDS ORDERED: AZITHROMYCIN IVPB 500 MG/250 ML BAG IVPB ONE (18:42)
[2024-07-23] MEDS: FUROSEMIDE 40 MG/4 ML INJECTABLE VIAL IVPUSH ONE ×2 (18:50→23:34)
[2024-07-23] MEDS: AZITHROMYCIN IVPB 500 MG in DEXTROSE 5%-WATER - 250 ML IVPB ONE (19:20)
[2024-07-23] MEDS ORDERED: ALBUTEROL SO4 2.5/IPRATROPIUM 0.5 INH SOL 3 ML VIAL.NEB. NEB PRN (20:44)
[2024-07-23] MEDS ORDERED: LEVALBUTEROL HCL 0.63 MG/3 ML VIAL.NEB. IH PRN (20:47)
[2024-07-23 21:12] LABS: ARTERIAL BLD GAS O2 SATURATION 98.5 % (95-98); ARTERIAL BLOOD GAS BASE EXCESS -2.9 mmol/L (-2-2); ARTERIAL BLOOD GAS PO2 120.4 mmHg (80-100); ARTERIAL BLOOD GAS pH 7.433 (7.350-7.450)
[2024-07-23 21:13] LABS: VENT MODE S/T; VENT RATE 14
[2024-07-23] MEDS ORDERED: ATORVASTATIN CA 80 MG TABLET (FP) ONE (22:16)
[2024-07-23] MEDS: ATORVASTATIN CA 80 MG TABLET (FP) PO SCH (22:45)
[2024-07-23] MEDS: INSULIN ASPART SLIDING SCALE (NOVOLOG) 1 VIAL SQ SCH (22:45)
[2024-07-24] MEDS: INSULIN (LEVEMIR) 100 UNITS/ML UNITS SQ SCH (00:43)
[2024-07-24] MEDS ORDERED: FUROSEMIDE 40 MG/4 ML INJECTABLE VIAL ONE ×2 (06:14→15:20)
[2024-07-24] MEDS: FUROSEMIDE 40 MG/4 ML INJECTABLE VIAL IVPUSH SCH (06:26)
[2024-07-24 07:56] LABS: HEMATOCRIT 37.3 % (35.4-49); HEMOGLOBIN 12.7 GM/dL (11.7-16.9); MCH 29.4 pg (25.7-33.7); MCHC 34.1 g/dl (32.0-35.9); MEAN CELL VOLUME 86.4 fl (80-96); MEAN PLT VOLUME 9.3 fl (7.5-11.1); PLATELET COUNT 175 10^3/uL (134-434); RBC 4.32 M/mm3 (4.00-5.60); WHITE BLOOD COUNT 10.1 K/mm3 (4.0-10.0)
[2024-07-24 08:17] LABS: POTASSIUM 4.3 mmol/L (3.5-5.1)
[2024-07-24 08:19] LABS: CALCIUM 8.6 mg/dL (8.5-10.1)
[2024-07-24 08:20] LABS: ALBUMIN 3.2 g/dl (3.4-5.0); BLOOD UREA NITROGEN 25.5 mg/dL (7-18); MAGNESIUM 2.5 mg/dL (1.8-2.4)
[2024-07-24 08:23] LABS: CREATININE 1.2 mg/dL (0.55-1.3); PHOSPHOROUS 3.5 mg/dL (2.5-4.9)
[2024-07-24 08:24] LABS: BILIRUBIN,TOTAL 0.4 mg/dL (0.2-1); TOT PROT 6.7 g/dl (6.4-8.2)
[2024-07-24] MEDS: INSULIN (NOVOLOG) ASPART 100 UNITS/ML 10ML VIAL SQ SCH (08:28)
[2024-07-24] MEDS ORDERED: LISINOPRIL 5 MG TABLET PO SCH (10:00)
[2024-07-24] MEDS ORDERED: CLOPIDOGREL BISULFATE 75 MG TABLET (FP) ONE (10:51)
[2024-07-24] MEDS ORDERED: ENOXAPARIN NA (PORCINE) 40 MG/0.4 ML DISP.SYRIN SQ ONE (10:51)
[2024-07-24] MEDS ORDERED: INSULIN (LEVEMIR) 100 UNITS/ML UNITS SQ ONE (10:51)
[2024-07-24] MEDS: ENOXAPARIN NA (PORCINE) 40 MG/0.4 ML DISP.SYRIN SQ SCH (11:16)
[2024-07-24] MEDS: CLOPIDOGREL BISULFATE 75 MG TABLET (FP) PO SCH (11:16)
[2024-07-24 16:55] VITALS: BMI 34.6
[2024-07-25 07:09] LABS: HEMATOCRIT 36.2 % (35.4-49); HEMOGLOBIN 12.1 GM/dL (11.7-16.9); MCH 29.2 pg (25.7-33.7); MCHC 33.3 g/dl (32.0-35.9); MEAN CELL VOLUME 87.8 fl (80-96); MEAN PLT VOLUME 9.6 fl (7.5-11.1); PLATELET COUNT 159 10^3/uL (134-434); RBC 4.13 M/mm3 (4.00-5.60); RDW 13.9 % (11.9-15.9); WHITE BLOOD COUNT 10.6 K/mm3 (4.0-10.0)
[2024-07-25 07:27] LABS: POTASSIUM 3.6 mmol/L (3.5-5.1)
[2024-07-25 07:34] LABS: BLOOD UREA NITROGEN 27.6 mg/dL (7-18); CALCIUM 8.3 mg/dL (8.5-10.1)
[2024-07-25 07:39] LABS: BILIRUBIN,TOTAL 0.4 mg/dL (0.2-1); TOT PROT 6.1 g/dl (6.4-8.2)
[2024-07-25] MEDS: INSULIN (NOVOLOG) ASPART 100 UNITS/ML 10ML VIAL SQ SCH (07:39)
[2024-07-25] MEDS: ASPIRIN COATED 81 MG TABLET.EC PO SCH (09:32)
[2024-07-25] MEDS: LISINOPRIL 5 MG TABLET PO SCH (09:32)
[2024-07-25] MEDS ORDERED: BISACODYL 5 MG TABLET.DR (FP) PO PRN (15:35)
[2024-07-25] MEDS ORDERED: INSULIN ASPART SLIDING SCALE (NOVOLOG) 1 VIAL SQ ONE (22:16)
[2024-07-26 07:34] LABS: HEMATOCRIT 37.8 % (35.4-49); HEMOGLOBIN 12.5 GM/dL (11.7-16.9); MCHC 33.2 g/dl (32.0-35.9); MEAN CELL VOLUME 87.4 fl (80-96); MEAN PLT VOLUME 9.3 fl (7.5-11.1); PLATELET COUNT 166 10^3/uL (134-434); RBC 4.32 M/mm3 (4.00-5.60); RDW 13.6 % (11.9-15.9); WHITE BLOOD COUNT 8.1 K/mm3 (4.0-10.0)
[2024-07-26] MEDS: INSULIN (NOVOLOG) ASPART 100 UNITS/ML 10ML VIAL SQ SCH (07:44)
[2024-07-26 07:54] LABS: POTASSIUM 3.7 mmol/L (3.5-5.1)
[2024-07-26 07:59] VITALS: RESP 18
[2024-07-26 08:00] LABS: BLOOD UREA NITROGEN 30.7 mg/dL (7-18); CALCIUM 8.7 mg/dL (8.5-10.1)
[2024-07-26 08:03] LABS: CREATININE 1.1 mg/dL (0.55-1.3)
[2024-07-26 15:43] VITALS: BP 126/73; PULSE 78; TEMP 98.7
== END 2024-07-26 17:42 | disposition home or self-care (01) | DRG 133 ==
LOC: JER 17:16 → JERBED 18:35 → J4W 07-24 15:58
PROVIDERS: ADMIT Internal Medicine; ATTEND Internal Medicine
DX: J96.21 Acute and chronic respiratory failure with hypoxia (principal); J96.22 Acute and chronic respiratory failure with hypercapnia; E78.00 Pure hypercholesterolemia, unspecified; E11.40 Type 2 diabetes mellitus with diabetic neuropathy, unspecified; J44.1 Chronic obstructive pulmonary disease with (acute) exacerbation; I11.0 Hypertensive heart disease with heart failure; I50.33 Acute on chronic diastolic (congestive) heart failure; I25.10 Atherosclerotic heart disease of native coronary artery without angina pectoris; Z95.5 Presence of coronary angioplasty implant and graft
CPT/HCPCS: 0241U-QW; 36415; 36600; 71045-TC-FY; 80048; 80053; 82803; 82962; 83735; 83880; 84100; 84484; 85025; 85027; 85610; 86850; 86900; 86901; 93005; 93010; 97116-GP; 97161-GP; 99285-25

== ENCOUNTER 2024-07-31 15:09 | Emergency (ER) | payer OTHER ==
[2024-07-31 15:37] VITALS: RESP 18; TEMP 97.2; BMI 33.2
[2024-07-31] MEDS: ALBUTEROL SO4 2.5/IPRATROPIUM 0.5 INH SOL 3 ML VIAL.NEB. NEB SCH (16:45)
[2024-07-31] MEDS ORDERED: ALBUTEROL SO4 2.5/IPRATROPIUM 0.5 INH SOL 3 ML VIAL.NEB. NEB ONE (16:48)
[2024-07-31 17:10] LABS: BASO % 1.4 % (0-2.0); EOS % 2.4 % (0-4.5); HEMATOCRIT 37.3 % (35.4-49); HEMOGLOBIN 12.6 GM/dL (11.7-16.9); LYMPH % 23.5 % (8-40); MCH 28.8 pg (25.7-33.7); MCHC 33.8 g/dl (32.0-35.9); MEAN CELL VOLUME 85.3 fl (80-96); MEAN PLT VOLUME 9.3 fl (7.5-11.1); MONO % 6.9 % (3.8-10.2); NEUT % 65.8 % (42.8-82.8); PLATELET COUNT 174 10^3/uL (134-434); RBC 4.38 M/mm3 (4.00-5.60); RDW 13.5 % (11.9-15.9); WHITE BLOOD COUNT 7.8 K/mm3 (4.0-10.0)
[2024-07-31 17:40] LABS: CALCIUM 8.7 mg/dL (8.5-10.1)
[2024-07-31 17:41] LABS: ALBUMIN 3.1 g/dl (3.4-5.0); BLOOD UREA NITROGEN 17.7 mg/dL (7-18); MAGNESIUM 2.2 mg/dL (1.8-2.4)
[2024-07-31 17:46] LABS: BILIRUBIN,TOTAL 0.4 mg/dL (0.2-1); TOT PROT 6.5 g/dl (6.4-8.2)
[2024-07-31 18:24] LABS: HIV INTERPRETATION NEGATIVE (NEGATIVE)
[2024-07-31 18:31] LABS: POTASSIUM 4.5 mmol/L (3.5-5.1)
[2024-07-31 20:10] VITALS: BP 139/70; PULSE 99
== END 2024-07-31 22:53 | disposition home or self-care (01) ==
LOC: JER 15:09
PROC: 3E0F7GC Introduction of Other Therapeutic Substance into Respiratory Tract, Via Natural or Artificial Opening (ICD-10-PCS; principal; 2024-07-31)
DX: R06.02 Shortness of breath (principal); Z20.822 Contact with and (suspected) exposure to COVID-19
CPT/HCPCS: 0241U-QW; 36415; 71045-TC-FY; 80053; 83735; 84484; 85025; 86803; 87389; 93005; 93010; 93970-TC; 99285-25